=== PATIENT | male | born 1955 | race Caucasian/White ===

== ENCOUNTER → 2023-04-15 09:13 | Outpatient (REF) | payer OTHER, SELFPAY | LOC: DHCBC HW 09:13 | PROVIDERS: ATTENDING PHYSICIAN Internal Medicine; FAMILY PHYSICIAN Family Medicine | DX: I49.1 Atrial premature depolarization (principal); I77.810 Thoracic aortic ectasia; R06.09 Other forms of dyspnea | CPT/HCPCS: 93306 ==

== ENCOUNTER 2023-08-09 13:36 | Inpatient (IN) | payer OTHER, SELFPAY ==
[2023-08-09] VITALS (25 sets, daily range): BP systolic 131–170; BP diastolic 71–112; BMI 38.8; BMI 38.9
--- NOTE | 2023-08-09 08:16 | ED.GENMED ---
History of Present Illness
General
Chief Complaint: Chest Pain
Source: patient and ambulance crew
Exam Limitations: none
Time Seen by Provider: 08/09/23 08:08
History of Present Illness
History of Present Illness:
68-year-old male sudden onset of midsternal chest burning at about 645 this morning. Eventually relieved with nitroglycerin and aspirin via the medics. Per the medics patient look very pale cyanotic and diaphoretic. Similar episode that lasted 30
minutes walking to the [employer] the other night. No shearing pain or upper back pain. Currently asymptomatic
Past History
Past History
ED Past Medical History: HTN, Hypercholesterolemia and Other (Sleep apnea uses CPAP, )
ED Past Surgical History: Orthopedic (laminectomy X 2, Carpal tunnel Bilateral, Foot surgery, Right and left rotator cuff, ) and Other (MOHs surgery right hand, Hernia repair bilateral)
Social History
Tobacco: Non-smoker
Alcohol: Occasional
Personal:
Living: with family
Family History
Family History: Early CAD and CAD
Phy Exam
Physical Exam
Physical Exam:
GENERAL: Alert and oriented in no apparent distress
EYE: Orbits normal.
NECK: Supple, no significant adenopathy.
ENT: Pharynx without erythema
CARDIAC: Regular rate and rhythm without any obvious murmurs.
LUNGS: Clear breath sounds,normal
ABDOMEN: Soft, without focal tenderness or distention. Elevated BMI
NEUROLOGICAL: Alert and oriented , grossly non-focal
SKIN: Warm and dry, no rash or lesion, no discoloration, skin intact.
MUSCULOSKELETAL: No edema,no deformity.Good color
PSYCH: Normal and appropriate interaction.
Scores
Heart Score for Chest Pain Patients
STEMI patient?: No
History: Highly Suspicious
ECG: Nonspecific Repolarization
Age: >/= 65 years
Risk Factors: 1 or 2 Risk Factors
Troponin: </= Normal Limit
Heart Score for Chest Pain Patients: 6
Heart Score Risk: 20.3% MACE over next 6 weeks
Course
Orders/Labs/Results
Orders:
Orders
08/09/23 Breakfast
NPO
Allow oral meds: Yes
Allow clear liquids: No
08/09/23 07:59
Electrocardiogram (*1) Urgent
Reason for Study: Chest Pain
08/09/23 08:00
EKG- Treatment ONCE
08/09/23 08:09
PTT Urgent
Comment: Obtain baseline before beginning heparin infusion if not already collected
Heparin 4,000 units IV NOW STA
Nursing to Place Non Medication Order As Directed
Physician Order: PTT 6 hours after initial start of Heparin infusion
08/09/23 08:11
Cardiovascular Evaluation Urgent
Comment: ADD ON
Complete Blood Count/With Diff Urgent
Comprehensive Metabolic Panel Urgent
Troponin I Urgent
08/09/23 08:15
Heparin 75622 Units/250 ml 25,000 units in 250 ml IV PER PROTOCOL
Weight to be used for heparin protocol in kilograms (kg):: 144.6
Protocol:: Cardiac Tx/Acute Coronary
PTT Goal Range to be used:: PTT 73 to 111 seconds
Order type:: Initial
INITIAL Infusion Dose (UNITS/KG/hr) & then follow protocol:: 12 units/kg/hr
Infusion Dose in UNITS/hr & then follow protocol (UNITS/hr):: 1,000
INFUSION RATE in mL/hr & then follow protocol (mL/hr):: 10
PTT less than or equal to 64 seconds:: Increase rate by 200 units/hr (+ 2 mL/hr)
PTT 64.1 to 72.9 seconds:: Increase rate by 100 units/hr (+ 1 mL/hr)
PTT 73 to 111 seconds:: Target Range. No change in rate.
PTT 111.1 to 130.9 seconds:: Decrease rate by 100 units/hr (- 1 mL/hr)
PTT 131 to 199.9 seconds:: HOLD for 1 hr. Then decrease rate by 200 units/hr (- 2 mL/hr)
PTT greater than or equal to 200 seconds:: HOLD for 2 hrs & Notify Provider. Then decrease by 200 units/hr (-
2 mL/hr)
Lab follow-up:: Each change, PTT q6h until 2 consecutive are therapeutic. Then PTT
daily.
08/09/23 08:25
Nitroglycerin 100 mg/250 ml [Nitroglycerin Premix] 100 mg in 250 ml IV NOW
Initial dose in mcg/min, then titrate:: 5
Titrate to keep:: SBP < 160 mmHg
Titrate by mcg/min:: 5 mcg/min, may increase by 10 mcg/min if dose > 20 mcg/min
Frequency of titrations (minutes):: every 3-5 minutes
Maximum dose in mcg/min:: 200
Begin to taper infusion when:: Remained at goal for 2hrs
Taper by mcg/min:: 5 mcg/min
Frequency of taper (minutes) if patient maintains goal:: 30
Taper to off?: Yes
If infusion off & no longer maintaining goal:: Contact Provider
08/09/23 08:34
Nitroglycerin Sublingual [Nitrostat (Sublingual)] 0.4 mg .ROUTE .STK-MED ONE
08/09/23 08:37
Nitroglycerin Sublingual [Nitrostat (Sublingual)] 0.4 mg SL NOW STA
08/09/23 08:40
Code Status As Directed
Resuscitation Status: Full Code
VTE Contraindication Routine
VTE Mechanical Device Contraindication: Medical Contraindication
Pharmocologic Contraindication: Medical Contraindication
Comment: Heparin gtt
Glycohemoglobin (HgbA1c) Routine
Acetaminophen [Tylenol] 650 mg PO Q4HPRN PRN
Activity As Directed
Activity Level: Bathroom Privileges
INT (Intravenous Needle Therapy) As Directed
Comment: maintain peripheral IV access
Intake/ Output As Directed
Frequency: Per unit guidelines
Vital Signs As Directed
Frequency: q4h
Weight As Directed
Frequency: Once
Type of Scale: Standing Scale
08/09/23 08:42
Echo 2D MMode Color/Doppler Routine
Reason for Study: chest pain
08/09/23 08:43
ECG as needed As Directed
ECG as needed for:: Chest Pain
08/09/23 08:45
Add On- LAB Routine
Tests Added?: Lipid panel
08/09/23 09:14
Admit Patient As Directed
Co-Sign Provider:
Level of Care: Inpatient admission
Assign to:: IVU
Physician / Group: CBC
Diagnosis: ACS
Reason for Hospitalization: Acute coronary syndrome, cardiac catheterization
Expected length of stay greater than two midnights?: Yes
ELOS- Estimated Length of Stay in days: 3
I certify the patient meets the requirements for IP care: Yes
Troponin I Q3H
Comment: at admit & Q3H for 3 total including ED draws, obtain ECG with each level
08/09/23 09:30
Atorvastatin [Lipitor] 80 mg PO QPM
08/09/23 11:45
Troponin I Q3H
Comment: at admit & Q3H for 3 total including ED draws, obtain ECG with each level
08/09/23 14:00
Troponin I Urgent
08/09/23 14:45
Electrocardiogram (*1) Q6H
Reason for Study: Chest Pain
Comment: at admission and Q3H for total of 3, to be done with each troponin
Troponin I Q3H
Comment: at admit & Q3H for 3 total including ED draws, obtain ECG with each level
08/09/23 20:00
Carvedilol [Coreg] 12.5 mg PO BID
08/09/23 20:45
Electrocardiogram (*1) Q6H
Reason for Study: Chest Pain
Comment: at admission and Q3H for total of 3, to be done with each troponin
08/09/23 22:00
Zolpidem Tartrate [Ambien] 10 mg PO HS
08/10/23 08:00
Aspirin Low Dose EC [Aspir Low (Enteric Coated)] 81 mg PO DAILY
Valsartan [Diovan] 320 mg PO DAILY
Abnormal Lab Results
08/09/23 08/09/23
08:11 09:14
RBC 4.64 L 10^6/uL
(4.70-6.10)
MCH 32.3 H pg
(27.0-31.0)
Lymphocytes % 15.1 L %
(20.5-51.1)
Glucose 187 H mg/dl
(70-99)
Troponin I 0.049 H* ng/ml 0.070 H* D ng/ml
Triglycerides 169 H mg/dl
(10-149)
Total Cholesterol 225 H mg/dl
(50-199)
VLDL Cholesterol, Calc 33 H mg/dl
(0-30)
08/09/23 08:11
08/09/23 08:11
Vital Signs
Initial and Last Documented VS:
Initial Vital Signs
Pulse Resp BP Pulse Ox
64 16 166/112 95
08/09/23 08:00 08/09/23 08:00 08/09/23 08:00 08/09/23 08:00
Last Documented Vital Signs
Pulse Resp BP Pulse Ox
53 17 160/92 95
08/09/23 10:15 08/09/23 10:15 08/09/23 10:00 08/09/23 10:15
*Pulse Oximetry
Patient hypoxic: no
*EKG
Interpreted by ED Provider?: Yes
Interpretation: normal
Comparison EKG: no changes
Heart Rate: 62
Rate: normal
Rhythm: sinus and PVC's
[place]: normal axis
Interval: normal interval
QRS Pattern: normal QRS
Ischemia: non-specific ST changes
*Neuropathologist Interpretation
Rate: bradycardiac
Interpretation: normal
Heart Rate: 59
Rhythm: sinus
*Critical Care Note
Total Time (30-74mins, 75-104mins- exclusive of procedures): 35
Update Note
Update Note:
Patient's exertional symptoms 3 days ago along with description of symptoms this morning and appearance via the medics is highly suspicious for coronary disease. In addition his prehospital EKG had some flipped T waves in 1 and aVL and some
questionable early elevation inferiorly although our EKGs do not show this. Given his history complex risk factors and EKGs patient was immediately referred to cardiology who happened to be in the ER seeing another patient. Heparin was started.
Aspirin was already given.
ED Attending Note
-
Portions of this chart may have been created with voice recognition software.� Occasional wrong word or��sound alike� substitutions may have occurred due to the inherent limitations of voice recognition software.
Discharge Plan
Departure
Patient Disposition: Admit
Date of Disposition: 08/09/23
Time of Disposition: 08:24
Presentation/result/management discussed w/ accepting MD/DO: Cardiology
Discharge Problem:
Unstable angina., Probable non-STEMI VT
Prescriptions:
No Action
carvedilol 12.5 mg Tablet
12.5 mg PO BID
NyQuil 7.5-60-30-1,000 mg/30 mL Liquid
15 ml PO HSPRN PRN (Reason: sleep)
Metamucil Packet
1 packet PO Q72H
acetaminophen [Tylenol Arthritis] 650 mg Tablet Extended Release
650 mg PO Q8HPRN PRN (Reason: mild pain)
valsartan 320 mg Tablet
320 mg PO DAILY
zolpidem 10 mg Tablet
10 mg PO HS
turmeric 400 mg Capsule
2,000 mg PO DAILY
Nervive Nerve Health Tabs tablet
1 tab PO DAILY
Interventions
Interventions:
*Risk Screen - Suicide Last Done: 08/09/23 08:09
*General Assessment Last Done: 08/09/23 08:09
*Neglect/Abuse Screening Last Done: 08/09/23 08:09
*ED COVID-19 Vaccine History Last Done: 08/09/23 08:08
Discharge Date and Time
Print Language: SYRIAC
[2023-08-09 08:38] LABS: % Basophils 0.5 % (0-2); % Eosinophils 3.3 % (0-6); % Immature Granulocytes 0.1 % (0-0.5); % Lymphocytes 15.1 % (20.5-51.1); % Monocytes 6.4 % (1.7-9.3); % Neutrophils 74.6 % (42.2-75.2); Absolute Eosinophils 0.3 10^3/uL (0-0.7); Absolute Lymphocytes 1.2 10^3/uL (1.2-3.4); Absolute Monocytes 0.5 10^3/uL (0.1-0.6); Absolute Neutrophils 5.7 10^3/uL (1.4-6.5); Hematocrit 42.4 % (39.0-52.0); Mean Corp Hgb Conc. 35.4 g/dL (33.0-37.0); Mean Corpuscular Hgb 32.3 pg (27.0-31.0); Mean Corpuscular Volume 91.4 fL (80.0-94.0); Mean Platelet Volume 10.3 fL (7.4-10.4); Nucleated Red Blood Cells % 0 % (-); Platelet Count 155 10^3/uL (130-400); Red Blood Cell Count 4.64 10^6/uL (4.70-6.10); Red Cell Dist. Width 13.9 % (11.5-14.5); White Blood Cell Count 7.6 10^3/uL (4.8-10.8)
[2023-08-09] MEDS: NITROSTAT (SUBLINGUAL) 0.400000000000000022 MG SL (08:38)
[2023-08-09 08:48] LABS: ALT (SGPT) 28 U/L (0-50); AST (SGOT) 32 U/L (17-59); Albumin 4.2 g/dl (3.5-5.0); Alkaline Phosphatase 69 U/L (38-126); Blood Urea Nitrogen 16 mg/dl (9-20); Calcium 9.1 mg/dl (8.4-10.2); Carbon Dioxide 27 mmol/L (22-30); Chloride 103 mmol/L (98-107); Estimated Creatinine Clearance 122 ml/min; Glucose 187 mg/dl (70-99); Sodium 137 mmol/L (135-145); Total Bilirubin 1.1 mg/dl (0.2-1.3); Total Protein 7.1 g/dl (6.3-8.2); eGFR > 60.00
--- NOTE | 2023-08-09 08:48 | HPS.HSE ---
Family Physician
-
Family Physician: Ilya Gtz
Chief Complaint
-
Chest pain
History of Present Illness
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 He reports being
in his usual health until this weekend. He attended the [employer]. While walking approximately three quarters of a mile to the stadium he had extreme shortness of breath and chest tightness. He had to stop at least 3 times to catch his breath
and wait for the symptoms to resolve before proceeding. This morning he woke up and made himself a cup of tea and had sudden onset of chest tightness while sitting outside. His reports he looked very unwell. He reported associated
diaphoresis, overwhelming fatigue, and radiation of the pain into his shoulder blades. Initially he did not want to call EMS but finally agreed. He was given 324 mg of aspirin. He was then given sublingual nitroglycerin and he achieved relief
from his symptoms. EKG en route showed T wave inversions in V1 and aVL which have since improved.
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 He also has been feeling like he needs a nap after mowing
the lawn which is very unusual for him. He also reports 'working through' his shortness of breath while doing physical activity.
Approximately 2 weeks ago he had a tooth extraction. It was infected and he completed 7 days of antibiotic therapy prior to the inched extraction and 7 days of antibiotic therapy post extraction. He denies fevers and chills.
Medical History
Past Medical History
Past Medical History: Reports HTN and Hypercholesterolemia
Past Surgical History: Reports Orthopedic
Social History
Tobacco: Non-smoker
Alcohol: Daily (2 beers per day)
Personal:
Living: With Family
Family History
Family History: Not pertinent (Denies CAD.)
Allergies / Home Medications
Allergies reflects when Allergies were last updated in Frequency.
Home Medications with original date entered in Frequency
Allergy/Medication List:
Allergies:
He denies food and drug allergies.
Home medication list:
Tylenol arthritis extended 50 mg p.o. every 8 hours as needed mild pain
Carvedilol 12.5 mg p.o. twice daily
NyQuil 15 mL p.o. at bedtime as needed insomnia
Nervive health 1 tablet p.o. daily
Metamucil 1 packet p.o. every 72 hours
Turmeric 2000 g p.o. daily
Valsartan 320 mg p.o. daily
Zolpidem 10 mg p.o. at bedtime
Review of Systems
-
History Source: Patient
A 12 point ROS was completed and negative except as noted: Yes
Constitutional: Reports Fatigue
EENT: Reports No Symptoms
Respiratory: Reports See HPI
Cardiac: Reports See HPI
Abdomen/GI: Reports No Symptoms
: Reports No Symptoms
Musculoskeletal: Reports No Symptoms
Skin: Reports No Symptoms
Endocrine: Reports No Symptoms
Hematologic/Lymphatic: Reports No Symptoms
Psych: Reports No Symptoms
Physical Exam
Vital Signs
Vital Signs
Pulse Resp BP Pulse Ox
60 20 166/112 97
08/09/23 08:02 08/09/23 08:02 08/09/23 08:02 08/09/23 08:02
Physical Exam
General: Well Developed, Well Nourished, No Apparent Distress, Comfortable and Conversant
HEENT: NormoCephalic, Anicteric and Moist mucous membranes
Respiratory: Clear and Non Labored Respirations
Cardiac: S1/S2 and Regular Rhythm
Breast: Deferred by me
GI: Soft, Non Tender, Non Distended and Normal Bowel Sounds
Rectal: Deferred by Provider
Genito-urinary: Deferred by me
Musculoskeletal: No Clubbing and No Cyanosis
Skin: Warm
Neuro: AO x 3
Hematologic/Lymphatic: No Lymphadenopathy
Psych: Calm
Laboratory Results
-
08/09/23 08:11
Laboratory Results
Total Bilirubin 1.1 mg/dl (0.2-1.3) 08/09/23 08:11
AST 32 U/L (17-59) 08/09/23 08:11
ALT 28 U/L (0-50) 08/09/23 08:11
Alkaline Phosphatase 69 U/L (38-126) 08/09/23 08:11
Data Reviewed
-
Diagnostic Radiology: Report Reviewed by me (Sinus rhythm with sinus arrhythmia, PVC, nonspecific ST abnormality, rate 62)
Medical Tests (Nuc Med, Echo, EKG etc): Report Reviewed by me (Echocardiogram 03/2023: LVEF 60 to 65%. Aortic close without stenosis. Aortic root 4.0 cm)
Lab Data: Labs Reviewed by me
Old Records: Reviewed
Impression/Plan
-
IMPRESSION: 68M with PACs, PSVT, IVCD, hypertension, hyperlipidemia, hypertriglyceridemia, mildly dilated arctic root, prediabetes, obesity, and chronic left lower extremity edema presented with a chief complaint of chest pain with OG
[employer] Preparation Worker: Dr. Escobar
PLAN:
ACS
-He received ASA 324 mg by EMS, continue 81 mg daily
-Intravenous heparin with bolus
-Chest pain-free on nitroglycerin drip
-Continue beta-wendy (carvedilol 12.5 mg BID), he already took today's dose
-Echocardiogram
-Cardiac catheterization today
Hyperlipidemia, hypertriglyceridemia
-Most recent LDL in 2021 was 122, he declined statin therapy
-Lipid panel pending, will start statin to achieve goal LDL
PSVT, PACs, continue beta-wendy
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
Prediabetes, most recent HgbA1c 6.1%
Obesity, BMI 38, he would benefit from weight loss
[2023-08-09] MEDS: NITROGLYCERIN PREMIX 250 IV (08:53)
[2023-08-09 09:00] LABS: Troponin I 0.049 ng/ml
[2023-08-09 09:00] LABS: APTT 27.9 Sec (23.4-35.0)
[2023-08-09 09:02] LABS: HDL Cholesterol 53 mg/dl; LDL Cholesterol, Calculated 139 mg/dl; Total Cholesterol 225 mg/dl (50-199); Triglyceride 169 mg/dl (10-149); Very Low Density Lipoprotein 33 mg/dl (0-30)
[2023-08-09] MEDS: HEPARIN 4000 UNITS IV (09:04)
[2023-08-09] MEDS: HEPARIN 25000 UNITS/250 ML IV ×2 (09:05→19:12)
--- NOTE | 2023-08-09 09:16 | CON.CAR ---
Consultation
Consultation Request
Date/Time Consultation Requested: 829 on 08/09/2023
Date/Time Consultation Performed: 82908/09/23
Requesting Provider: Dr. Rosado
Performing Provider: Dr. Simmons
Reason for Consultation: Chest pain
Medical History
-
Chief Complaint: Chest pain
History of Present Illness:
Primary roll reclaimer Dr. Escobar
68-year-old male with a history of hypertension, hypercholesterolemia and obesity who presents with chest pressure across his chest. Patient states he was in his usual health until this weekend. He had a he went to the [employer] and walked
three quarters of a mile to the stadium and had to stop due to onset of chest tightness and shortness of breath resolved with rest after about 5 minutes no recurrent episode until this morning he was eating breakfast and had tightness across his
chest apparently he did not look well. Patient's says his color did not look good he was taken to the ER by ambulance en route had aspirin and nitroglycerin with relief of symptoms. ECG en route had T wave inversions in 1 and aVL which have
improved on his current ECG which shows sinus rhythm without acute ischemic changes. Patient had some low-grade chest sensation when I was evaluating him in the ER which promptly resolved with sublingual nitroglycerin.
No prior history of coronary artery disease. Review of systems notable for tooth extraction about 2 weeks ago it was an infected tooth and he had 7 days of antibiotics prior to the extraction and another 7 days postextraction no current fevers or
other illness no other respiratory complaints no GI complaints no history of bleeding problems or blood clotting problems no history of stroke or TIA no allergies to IV contrast or other medications
Past medical history
Hypertension
Hypercholesterolemia
Obesity
Recent dental extraction as noted above
Prior prostate surgery
Social history does not smoke
Family history father had coronary disease
Allergies / Home Medications
Allergy/AdvReac Type Severity Reaction Status Date / Time
No Known Allergies Allergy Verified 08/09/23 08:00
�Medication �Instructions �Recorded �Confirmed �Type
Nervive Nerve Health Tabs 1 tab PO DAILY 08/09/23 08/09/23 History
acetaminophen 650 mg 650 mg PO Q8HPRN PRN mild pain 08/09/23 08/09/23 History
tablet,extended release
carvedilol 12.5 mg tablet 12.5 mg PO BID 08/09/23 08/09/23 History
[id number]-acetaminophen 7.5 15 ml PO HSPRN PRN sleep 08/09/23 08/09/23 History
mg-60 vs-[id number]/30mL oral liqd
psyllium 1 packet PO Q72H 08/09/23 08/09/23 History
turmeric 400 mg capsule 2,000 mg PO DAILY 08/09/23 08/09/23 History
valsartan 320 mg tablet 320 mg PO DAILY 08/09/23 08/09/23 History
zolpidem 10 mg tablet 10 mg PO HS 08/09/23 08/09/23 History
Review of Systems
-
All other systems: Negative unless noted
Physical Exam
Vital Signs
Pulse Resp BP Pulse Ox
60 20 166/112 97
08/09/23 08:02 08/09/23 08:02 08/09/23 08:02 08/09/23 08:02
Lab Results
08/09/23 08:11
08/09/23 08:11
Troponin I 0.049 ng/ml H* 08/09/23 08:11
Physical Exam
General: Well Developed and Well Nourished
HEENT: Normocephalic, Anicteric and Other (Neck without JVD no carotid bruit no lymphadenopathy external ear and oral exam and unremarkable eyes extraocular is intact pupils are equal)
Respiratory: Other (No wheezes rales or rhonchi)
Cardiac: Regular Rhythm (No murmur rub or gallop)
GI: Soft, Non Tender, Non Distended and Other
Musculoskeletal: No Clubbing, No Cyanosis and No Edema
Skin: Warm, Dry and Rash
Neuro: Awake and Alert
Hematologic/Lymphatic: No Lymphadenopathy
Psych: Calm
Impression / Plan
-
Chest discomfort/ACS
-Description of chest discomfort which was nitrate responsive with some associated ECG changes is consistent with angina. Patient currently chest pain-free
-Continue with IV heparin and IV nitro
-Aspirin
-Statin
-Beta-wendy. Note patient already took his carvedilol today
-Plan for cardiac catheterization today. Reviewed procedure and risks with the patient. Patient in agreement. Also reviewed with interventional cardiology.
.
Hypertension. Stable continue current therapy
.
Hypercholesterolemia atorvastatin started
Data Reviewed
-
EKG: Report Reviewed by me
Radiology: Report Reviewed by me
Medical Tests (Nuc Med, Echo etc): Report Reviewed by me
Labs: Discussed with Physician (Both ER physician and with Dr. Tang)
[2023-08-09 12:30] LABS: Troponin I 0.254 ng/ml
[2023-08-09 13:33] LABS: Glycohemoglobin (HgbA1c) 6.4 % (4.0-5.6)
--- NOTE | 2023-08-09 15:04 | ITS.CL.CATH ---
Recreation Leader - Catheterization
Cardiac Catheterization
Procedure Report:
CARDIAC CATHETERIZATION REPORT
Date of Procedure: 08/09/2023
Referring: Kana Simmons M.D.
INDICATION: Non-ST elevation myocardial infarction.
PROCEDURE:
1. Left heart catheterization.
2. Coronary angiography.
ACCESS:
6 [place] right radial artery.
CATHETERS:
1. 5 [place] JR4.
2. 5 [place] JL 4.
HEMODYNAMIC DATA
Weight (kg): 144.2
AO (s/d/x, mmHg): 151/91/114
LV (s/x mmHg): 153/21 (A wave to 31)
LEFT VENTRICULOGRAPHY: Not performed.
CORONARY ANGIOGRAPHY
Dominance: Right.
Left Main: Normal size, bifurcating vessel. There is no coronary artery disease.
LAD: Normal size vessel giving rise to 2 diagonals. There is a long, 70% lesion in the proximal/mid vessel spanning the origin of the first diagonal. There is an 80% in the mid vessel, immediately after the takeoff of the second diagonal. The
first diagonal is a small, 1 mm vessel. The second diagonal is a medium size to�2.5 mm vessel.
Ramus: Congenitally absent.
Circumflex: Normal size, nondominant vessel giving rise to 2 obtuse marginals. There is a 90% lesion in the origin of OM1. There is a 90% lesion in the mid circumflex, immediately proximal to the origin of OM 2.
RCA: Large size, dominant vessel. There is a critical, 90% stenosis in the mid RCA.
INTERVENTION(S)
None.
Closure Device: Vascular band.
Radiation (mGy): 369.29
DAP (cm2.Gy): 23.3781
Fluoroscopy time (minutes): 2.0
Sedation time (minutes): 29
CONCLUSIONS
1. Right dominant circulation with a critical, 90% stenosis in the mid RCA, a long, 70% lesion in the proximal/mid LAD spanning the origin of D1, and 80% lesion in the mid LAD immediately after the takeoff of D2, a 90% lesion in the origin of OM1
and a 90% lesion in the mid circumflex, immediately proximal to the origin of OM 2.
2. Moderately elevated filling pressures (LVEDP = 21 mmHg at 144.2 kg) with evidence of diastolic dysfunction (A wave to 31 mmHg).
RECOMMENDATIONS:
1. Expectant management after cardiac catheterization via right radial approach.
2. Limited weight bearing on the right wrist for one week.
3. Consultation with CT surgery regarding revascularization strategy.
4. Aggressive risk factor modification including hypertension control and reduction in cholesterol.
5. Echocardiogram ordered and pending.
Copy to: Kana Simmons M.D., Maurice Escobar M.D., Ph.D., Darrin Pathak.Mohini.
Kevin Tang DO, FACC, FACP
[2023-08-09 15:07] LABS: Troponin I 0.415 ng/ml
--- NOTE | 2023-08-09 15:36 | CONSULT.CT ---
Consultation
-
Date/Time Consultation Requested: 08/09/2023
Date/Time Consultation Performed: 08/09/2023
Requesting Provider: Kevin Tang
Performing Provider: Siva leos
Reason for Consultation: Evaluation for coronary artery bypass grafting
Patient History
Physicians
Family Physician: Ilya Gtz
Outpatient Cloth Finishing Range Back Tender: Dr. Escobar
Inpatient Cloth Finishing Range Back Tender: Dr. Simmons
History of Present Illness
Patient is a 68-year-old male followed by Dr. Escobar his primary senior planner. Past medical history significant for hypertension, hypercholesterolemia, prediabetes with A1c of 6.4 and obesity.
Presented to [facility] emergency department complaining of substernal chest pressure. He had complained of substernal chest pain brought on with walking a short distance. Chest pain also described as chest tightness and he reports having
trouble catching his breath. Symptoms resolved after rest and the symptoms have been gradually getting worse over the past few weeks. On the morning of admission he complained of substernal chest pain while sitting outside drinking tea. He also
complained of sudden onset chest tightness and his called 911. During this episode he also reported diaphoresis, overwhelming fatigue and substernal chest tightness which radiated into both shoulder blades.
In the emergency room he was given aspirin and sublingual nitroglycerin which relieved his symptoms. He ruled in for NSTEMI with serial enzymes studies. Echocardiogram performed on 08/09/2023 showed normal biventricular size and systolic function
without regional wall motion abnormality. There is no significant valvular disease. Left ventricular ejection fraction was noted to be 55 to 60%. He then underwent cardiac catheterization by Dr. Kevin Tang on 08/09/2023 which showed 80% stenosis
of the mid LAD. 90% stenosis of the origin of OM1 and 90% lesion in the mid circumflex immediately proximal to the origin of OM 2. There was a critical 90% stenosis in the mid RCA.
Cardiothoracic surgery was consulted for CABG evaluation.
Preoperative studies will be ordered and all studies will be reviewed by attending cardiothoracic surgeon's and will discuss surgical plan and timing with patient later this week
Past Medical History
Past Medical History: Arrhythmias (History of bradycardia patient reports normal resting heart rate of 40-50), BPH, CAD, Covid-19, OG, GERD, HTN, Hypercholesterolemia, CHERYL and SOB
Past medical history significant for hypertension, hypercholesterolemia, obesity, obstructive sleep apnea uses CPAP at home, prediabetic, neuropathy left leg
Past Surgical History
Past Surgical History: Orthopedic and Urological
Past surgical history significant for skin cancer
Bilateral hernia repair
Bilateral rotator cuff repair
Lumbar laminectomy x 2
Bilateral carpal tunnel release
Prostatectomy in February 2022
Dental History
No dental issues currently, history of tooth extraction approximately 2 weeks ago followed by short course of antibiotics,
Family History
Mother: at Age (Mother at age 83 history of heart disease and congestive heart failure)
Father: at Age (Father at 61 years of age from a myocardial infarction)
Family Medical History: Early CAD, CAD, Hypertension and Other (Brother of [place] at age 73, sister 69 years of age alive and well status post valve surgery)
Social History
Alcohol: Daily (Drinks 2 beers a day)
Drug: None
Tobacco: Non-Smoker
Personal:
Living: With Spouse (Lives with spouse Lisa)
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
Covid Vaccination History:
Patient reports COVID infection x 1
COVID-vaccine x 4
Allergies
Allergy/AdvReac Type Severity Reaction Status Date / Time
No Known Allergies Allergy Verified 08/09/23 08:00
Home Medications
�Medication �Instructions �Recorded �Confirmed �Type
Nervive Nerve Health Tabs 1 tab PO DAILY 08/09/23 08/09/23 History
acetaminophen 650 mg 650 mg PO Q8HPRN PRN mild pain 08/09/23 08/09/23 History
tablet,extended release
carvedilol 12.5 mg tablet 12.5 mg PO BID 08/09/23 08/09/23 History
dnzyzjjwl-DNZ-UY-acetaminophen 7.5 15 ml PO HSPRN PRN sleep 08/09/23 08/09/23 History
mg-60 [id number]/30mL oral liqd
psyllium 1 packet PO Q72H 08/09/23 08/09/23 History
turmeric 400 mg capsule 2,000 mg PO DAILY 08/09/23 08/09/23 History
valsartan 320 mg tablet 320 mg PO DAILY 08/09/23 08/09/23 History
zolpidem 10 mg tablet 10 mg PO HS 08/09/23 08/09/23 History
Review of Systems
-
History Source: Patient
General: Reports Fatigue
HEENT: Reports No Symptoms
Respiratory: Reports SOB and OG
Cardiac: Reports Chest Pain, CAD, Diaphoresis and Edema
Abdomen/GI: Reports Reflux
: Reports Nocturia
Musculoskeletal: Reports Arthralgias, Joint Pain, Edema and Other (Osteoarthritis bilateral knees)
Skin: Reports Other (History of skin cancer status post Mohs procedure)
Neurological: Reports Other (Left leg neuropathy)
Vascular: Reports Other (Patient reports legs feeling heavy with walking)
Physical Exam
Vital Signs
Pulse 50 08/09/23 13:45
Resp Rate 16 08/09/23 13:45
Blood pressure 135/80 08/09/23 13:30
Blood pressure extremity used: Left upper arm 08/09/23 08:02
Position: Sitting 08/09/23 08:02
MAP (cuff-Clayton Monitor) 96 08/09/23 13:30
SaO2 95 08/09/23 13:45
Nasal Cannula flow liters per minute 97 08/09/23 08:16
Oxygen Mode of Delivery Room air 08/09/23 08:16
Actual Weight 318 lb 12.615 oz 08/09/23 08:07
Body Mass Index (BMI) 38.8 08/09/23 08:07
Labs
08/09/23 08:11
08/09/23 08:11
APTT 27.9 Sec (23.4-35.0) 08/09/23 08:09
Hemoglobin A1c 6.4 % (4.0-5.6) H 08/09/23 11:53
Troponin I 0.415 ng/ml H* D 08/09/23 14:28
Exam
General: Well Developed, Well Nourished, No Apparent Distress and Comfortable
HEENT: Normocephalic, Anicteric and Atraumatic
Neck: Trachea Midline
Respiratory: Clear
Cardiac: Regular Rhythm
GI: Soft, Non Tender, Non Distended, Normal Bowel Sounds and Other (Obesity)
Rectal: Deferred by Provider
Skin: Warm and Dry
Neuro: Awake, Alert, Oriented and AO x 3
Extremities: Lower Level Edema (Trace lower extremity edema left greater than right) and Pulses (Distal pulses intact bilaterally, dorsalis pedis pulse 1-2+ bilaterally, feet cool)
Lymph: No Lymphadenopathy
Psych: Calm
Assessment / Plan
-
Assessment:
NSTEMI
Three-vessel coronary artery disease with preserved left ventricular function, ejection fraction 55 to 60%
Hypertension
Hypercholesterolemia
Prediabetic with A1c of 6.4
Bradycardia with resting heart rate 40-50, asymptomatic
Obesity
Obstructive sleep apnea he uses CPAP at home
Neuropathy left leg/chronic left lower extremity edema
Skin cancer status post Mohs procedure
Osteoarthritis/degenerative joint disease
Strong family history of coronary artery disease
Plan:
Preoperative studies ordered
All studies to be reviewed by attending cardiothoracic surgeon's and will discuss plan and surgical timing with patient later this week.
[2023-08-09] MEDS: TYLENOL 650 MG PO (16:34)
[2023-08-09] MEDS: NSS 1000 IV (16:41)
--- NOTE | 2023-08-09 17:41 | PTCARENOTE ---
PT assisted OOB to BR, janice well.
[2023-08-09] MEDS: LIPITOR 80 MG PO (17:58)
[2023-08-09] MEDS: COREG 12.5 MG PO (20:33)
[2023-08-09] MEDS: AMBIEN 10 MG PO (22:40)
[2023-08-10] VITALS (9 sets, daily range): BP systolic 136–194; BP diastolic 78–110; BMI 38.2
--- NOTE | 2023-08-10 00:19 | PTCARENOTE ---
Pt received start of shift, HR SB/SR w/ sinus arrhythmia 50s-70s. R radial cath site dressing CDI, pulse palpable, soft, no hematoma. Heparin resumed at 1900 @ 1000units/hr. Educated pt on plan of care, pt states no questions at this time. Pt denies
any CP, SOB, or lightheadedness/dizziness. Informed to notify RN if any changes, call viramontes within reach.
[2023-08-10 02:11] LABS: Hematocrit 39.1 % (39.0-52.0); Hemoglobin 13.7 g/dL (13.0-18.0); Mean Corpuscular Hgb 32.2 pg (27.0-31.0); Mean Corpuscular Volume 91.8 fL (80.0-94.0); Mean Platelet Volume 10.1 fL (7.4-10.4); Platelet Count 140 10^3/uL (130-400); Red Blood Cell Count 4.26 10^6/uL (4.70-6.10); Red Cell Dist. Width 13.7 % (11.5-14.5); White Blood Cell Count 6.4 10^3/uL (4.8-10.8)
[2023-08-10 02:21] LABS: APTT 36.4 Sec (23.4-35.0)
[2023-08-10 02:32] LABS: ALT (SGPT) 25 U/L (0-50); AST (SGOT) 29 U/L (17-59); Albumin 3.5 g/dl (3.5-5.0); Alkaline Phosphatase 54 U/L (38-126); Blood Urea Nitrogen 13 mg/dl (9-20); Calcium 8.6 mg/dl (8.4-10.2); Carbon Dioxide 28 mmol/L (22-30); Chloride 106 mmol/L (98-107); Direct Bilirubin 0.2 mg/dl (0.0-0.4); Estimated Creatinine Clearance > 125 ml/min; Glucose 122 mg/dl (70-99); Sodium 138 mmol/L (135-145); Total Bilirubin 1.3 mg/dl (0.2-1.3); Total Protein 6.3 g/dl (6.3-8.2); eGFR > 60.00
[2023-08-10 02:38] LABS: Troponin I 0.449 ng/ml
[2023-08-10] MEDS: DIOVAN 320 MG PO (09:56)
[2023-08-10] MEDS: ASPIR LOW (ENTERIC COATED) 81 MG PO (09:56)
[2023-08-10] MEDS: COREG 12.5 MG PO ×2 (09:56→21:01)
--- NOTE | 2023-08-10 10:35 | W.PN.UPDATE ---
Update Note
Progress Note Update
Procedure Type:�Isolated CABG
PERIOPERATIVE OUTCOME ESTIMATE %
Operative Mortality 1.4%
Morbidity & Mortality 6.61%
Stroke 0.61%
Renal Failure 1.07%
Reoperation 1.99%
Prolonged Ventilation 3.68%
Deep Sternal Wound Infection 0.208%
Long Hospital Stay (>14 days) 3.17%
Short Hospital Stay (<6 days)* 50.1%
Clinical Summary
Planned Surgery: Isolated CABG, Urgent, First cardiovascular surgery
Demographics: 68 year old, male, 144kg, 193cm, BMI: 38.7 kg/m�
Lab Values: Creatinine: 0.8 mg/dL, Hematocrit: 39.1%, WBC Count: 6.4 10�/�L, Platelet Count: 106262 cells/�L
Substance Abuse: Never smoker, Alcohol use: >=8 drinks/week
Risk Factors / Comorbidities: Hypertension, Family Hx of CAD
Pulmonary RF: Sleep Apnea
Cardiac Status: Ejection Fraction = 55%
Coronary Artery Disease: 3 vessels diseased, Proximal LAD Stenosis >=70%, Non-ST Elevation MD, MD: 1 to 7 Days
Valve Disease: Mild MR, Trivial/Trace TR
[2023-08-10 11:04] LABS: INR 1.07; PT 13.8 Sec (11.4-14.6)
[2023-08-10 11:05] LABS: APTT 38.8 Sec (23.4-35.0)
--- NOTE | 2023-08-10 11:07 | CM ---
Chart reviewed. Patient is independent of ADLS, lives with his in a 2 STH, 0 KAT, 0 DME. Patient being worked up for a CABG. Plan is for the patient to return home. CM to follow
[2023-08-10 11:13] LABS: Troponin I 0.279 ng/ml
--- NOTE | 2023-08-10 12:53 | PTCARENOTE ---
type and screen drawn and sent to lab.
--- NOTE | 2023-08-10 12:53 | PTCARENOTE ---
received patient this am up in chair, monitor shows NSR, VSS, IV heparin now infusing at 1400units/hr without difficulties. son at bedside.
--- NOTE | 2023-08-10 12:56 | W.PN.CD ---
Today's Communication / Plan
-
continue ASA, and heparin drip
CT surgery consult
Impression / Plan
-
CAD/NSTEMI
-peak trop 0.4
-echo: EF 55-60%, no sig valve disease
-multivessel CAD on cath
-CABG evaluation
-cont ASA, heparin drip with monitoring of Hgb and tele
-cont coreg
Hypertension
-Stable: continue current therapy: coreg and valsartan.
Hypercholesterolemia:
- atorvastatin 80mg started this admission.
Physical Exam
Vital Signs/Labs
Vital Signs
Temp Pulse Resp BP Pulse Ox
99.2 F 57 18 144/70 98
08/10/23 12:52 08/10/23 12:00 08/10/23 12:52 08/10/23 09:56 08/10/23 12:52
08/09/23 08/10/23 08/11/23
06:59 06:59 06:59
Actual Weight 142.3 kg
08/10/23 01:50
08/10/23 01:50
PT 13.8 Sec (11.4-14.6) 08/10/23 10:38
INR 1.07 08/10/23 10:38
APTT 38.8 Sec (23.4-35.0) H 08/10/23 10:38
Triglycerides 169 mg/dl (10-149) H 08/09/23 08:11
LDL Cholesterol, Calc 139 mg/dl 08/09/23 08:11
VLDL Cholesterol, Calc 33 mg/dl (0-30) H 08/09/23 08:11
HDL Cholesterol 53 mg/dl 08/09/23 08:11
LAB Results
08/09/23 08/09/23 08/09/23
08:11 09:14 11:53
Troponin I 0.049 H* 0.070 H* D 0.254 H* D
08/09/23 08/09/23 08/10/23
14:28 14:28 01:50
Troponin I 0.415 H* D Cancelled 0.449 H*
08/10/23
10:38
Troponin I 0.279 H*
Physical Exam
Constitutional: Comfortable
EENT: Moist mucous membranes
Cardiovascular: Rhythm & rate is regular, Pedal edema is absent, JVD pressure is normal and Systolic murmur absent
Respiratory: Respiratory effort normal and Lungs clear to auscul.
GI: Soft, Distention absent and Flat
Neuro/Psych: AO x 3
Data Reviewed
-
Date of Service: August 10, 2023
EKG: Other (Tele: SB 50s)
Echo: Report Reviewed by me
Labs: Labs Reviewed by me
Old Records: Reviewed
--- NOTE | 2023-08-10 14:48 | CM ---
Reviewed preoperative and postoperative instructions and restrictions, along with showering guidelines. Gave patient Cardiac Surgery Book. Patient is agreeable to a home visit by CT Transitional RN. Plan is for the patient to return home with CT
Transitional Care RN
[2023-08-10] MEDS: HEPARIN 25000 UNITS/250 ML IV (15:14)
--- NOTE | 2023-08-10 16:32 | PTCARENOTE ---
patient will be transferred to CVICU, 2262. report given to Ana RIVERA. IV heparin remains at 1400units/hr. personal belongings packed and sent with patient. to 2263 via wc accompanied by RN and is at bedside.
--- NOTE | 2023-08-10 17:08 | PTCARENOTE ---
Patient received as transfer from IVU. Denies pain, SB via cm, SaO2 @ 97% on RA. Heparin gtt infusing as ordered at 1400units/hour. R wrist procedural site cdi, no ecchymosis or hematoma noted. Patient updated to plan of care, in agreement. See work
list for full assessment and interventions performed.
[2023-08-10 18:01] LABS: APTT 47.3 Sec (23.4-35.0)
[2023-08-10] MEDS: LIPITOR 80 MG PO (18:15)
--- NOTE | 2023-08-10 20:00 | PTCARENOTE ---
assumed care of pt from previous RN. pt A&Ox4, resting in chair at time of assessment. sinus madhu to SR on tele-monitor. POX 97-98% on RA. abd s/n, +BS. voiding in bathroom. R wrist cath site stable, CDI. PIV intact. heparin infusing per protocol.
plan of care discussed w/ pt, pt in agreement. see worklist for complete nursing assessment, interventions, VS, and I&Os.
--- NOTE | 2023-08-10 21:51 | PTCARENOTE ---
pt clipped for CVOR. 1st shower completed. NPO for 0000.
[2023-08-10] MEDS: AMBIEN 10 MG PO (22:11)
--- NOTE | 2023-08-11 00:15 | PTCARENOTE ---
assessment remains unchanged. VSS. pt on home CPAP machine. PTT collected and sent.
[2023-08-11 00:16] VITALS: BP 149/96
[2023-08-11 05:07] LABS: % Basophils 0.4 % (0-2); % Eosinophils 2.6 % (0-6); % Immature Granulocytes 0.4 % (0-0.5); % Lymphocytes 18.5 % (20.5-51.1); % Neutrophils 69.1 % (42.2-75.2); Absolute Eosinophils 0.2 10^3/uL (0-0.7); Absolute Lymphocytes 1.3 10^3/uL (1.2-3.4); Absolute Monocytes 0.6 10^3/uL (0.1-0.6); Absolute Neutrophils 4.8 10^3/uL (1.4-6.5); Hematocrit 40.3 % (39.0-52.0); Hemoglobin 14.1 g/dL (13.0-18.0); Mean Corpuscular Volume 91.4 fL (80.0-94.0); Nucleated Red Blood Cells % 0 % (-); Platelet Count 151 10^3/uL (130-400); Red Blood Cell Count 4.41 10^6/uL (4.70-6.10); Red Cell Dist. Width 13.5 % (11.5-14.5)
[2023-08-11 05:22] VITALS: BP 155/95
[2023-08-11 05:24] LABS: Blood Urea Nitrogen 15 mg/dl (9-20); Calcium 8.9 mg/dl (8.4-10.2); Carbon Dioxide 29 mmol/L (22-30); Chloride 102 mmol/L (98-107); Estimated Creatinine Clearance 121 ml/min; Glucose 122 mg/dl (70-99); Sodium 136 mmol/L (135-145); eGFR > 60.00
[2023-08-11 05:25] VITALS: BP 148/88; BMI 37.9
[2023-08-11] MEDS: MAGNESIUM OXIDE 500 MG PO (05:34)
[2023-08-11] MEDS: PROTONIX 40 MG PO (05:34)
--- NOTE | 2023-08-11 05:45 | DOWNTIME ---
There was a [employer] Technician Downtime on 08/11/2023 from 0100 to 08/11/2023 at 0337. Downtime documentation of patient's care, including medication administrations, has been reconciled in the electronic record per guidelines. Refer to the
patient's paper chart under the miscellaneous tab to see printed paper medication records and downtime forms.
--- NOTE | 2023-08-11 05:46 | PTCARENOTE ---
2nd shower completed. pre-op meds given. lopressor held per Davion MAN. HR 54. BP 155/95. pre-op education provided. all questions answered. internal control consultant to CVOR.
[2023-08-11] MEDS: BACTROBAN 2% OINTMENT 1 APPLIC NASAL (05:54)
--- NOTE | 2023-08-11 06:06 | W.PN.UPDATE ---
Update Note
Progress Note Update
patient for CABG today with Dr Milian.
-Reports some anxiety surrounding procedure, though otherwise NAEON.
-heparin gtt on overnight, to be held plant utility person to OR
-hemodynamically stable
-no complaints, denies active chest pain
-tolerating RA
Vital Signs / Labs
-
Vital Signs and Labs:
Temp Pulse Resp BP Pulse Ox
98.2 F 54 16 155/95 97
08/11/23 05:25 08/11/23 05:45 08/11/23 05:30 08/11/23 05:45 08/11/23 05:25
08/11/23 04:45
08/11/23 04:45
08/10/23 08/10/23 08/10/23
10:38 12:50 17:42
RBC
MCH
Lymphocytes %
APTT 38.8 H 47.3 H
Glucose
Troponin I 0.279 H*
Crossmatch IS Only See Detail
08/11/23 08/11/23
00:18 04:45
RBC 4.41 L
MCH 32.0 H
Lymphocytes % 18.5 L
APTT 60.0 H
Glucose 122 H
Troponin I
Crossmatch IS Only
--- NOTE | 2023-08-11 06:36 | W.CVOR.SURPR ---
CVOR Surgeon Immed Pre Op
-
I have examined this patient prior to performance of the scheduled procedure.
The patient's condition is unchanged from the time of the dictated/written History and
Physical and the patient is able to undergo the scheduled procedure.
--- NOTE | 2023-08-11 07:20 | W.PN.CD ---
Today's Communication / Plan
-
CABG today.
Impression / Plan
-
Impression/Plan: 68 y/o male with HTN and HLD admitted with NSTEMI, found to have MVCAD.
#CAD/NSTEMI
-Acute.
-Trop peaked at 0.4.
-Echo: LVEF 55-60%, no sig valve disease
-Multivessel CAD on cath.
-Cont ASA, heparin drip, carvedilol.
-CABG today.
-Anticipate routine postoperative care.
-Wean pressors/inotropes to MAP > 65 mmHg, CI > 2.2.
-Wean vent to extubate.
-Pain/chest tube management per CT surgery.
#Hypertension
-Chronic, stable.
-Adjust medications post CABG.
#Hypercholesterolemia
-Chronic, stable.
-Atorvastatin 80mg started this admission.
-Goal LDL < 55.
Subjective/Interval History:
No acute events.
DATA:
Cardiac Catheterization, 08/09/2023:
CONCLUSIONS
1. Right dominant circulation with a critical, 90% stenosis in the mid RCA, a long, 70% lesion in the proximal/mid LAD spanning the origin of D1, and 80% lesion in the mid LAD immediately after the takeoff of D2, a 90% lesion in the origin of OM1
and a 90% lesion in the mid circumflex, immediately proximal to the origin of OM 2.
2. Moderately elevated filling pressures (LVEDP = 21 mmHg at 144.2 kg) with evidence of diastolic dysfunction (A wave to 31 mmHg).
TTE, 08/09/2023:
CONCLUSIONS
Normal biventricular size and systolic function without regional wall motion
abnormality.
No significant valvular disease.
Compared to previous echo 04/15/23, the aortic root is 3.7cm on today's study
and was 4.0cm on the prior.
Physical Exam
Vital Signs/Labs
Vital Signs
Temp Pulse Resp BP Pulse Ox
36.8 C 54 16 155/95 97
08/11/23 05:25 08/11/23 05:45 08/11/23 05:30 08/11/23 05:45 08/11/23 05:25
08/09/23 08/10/23 08/11/23
11:59 11:59 11:59
Actual Weight 144.6 kg 142.3 kg 141.3 kg
08/11/23 04:45
08/11/23 04:45
PT 13.8 Sec (11.4-14.6) 08/10/23 10:38
INR 1.07 08/10/23 10:38
APTT 60.0 Sec (23.4-35.0) H 08/11/23 00:18
Triglycerides 169 mg/dl (10-149) H 08/09/23 08:11
LDL Cholesterol, Calc 139 mg/dl 08/09/23 08:11
VLDL Cholesterol, Calc 33 mg/dl (0-30) H 08/09/23 08:11
HDL Cholesterol 53 mg/dl 08/09/23 08:11
LAB Results
08/09/23 08/09/23 08/09/23
08:11 09:14 11:53
Troponin I 0.049 H* 0.070 H* D 0.254 H* D
08/09/23 08/09/23 08/10/23
14:28 14:28 01:50
Troponin I 0.415 H* D Cancelled 0.449 H*
08/10/23
10:38
Troponin I 0.279 H*
Physical Exam
Exam deferred. Patient currently in surgery.
Data Reviewed
-
Date of Service: August 11, 2023
Medical Decision Making: Reviewed Test Results, Test Interpretation and Review of Case with other Provider
EKG: Tracing Personally Visualized and interpreted and Report Reviewed by me
Echo: Tracing Personally Visualized and interpreted and Report Reviewed by me
X-Ray/CT/US/MRI/NUC/PET: Image Personally Visualized and interpreted and Report Reviewed by me
Medical Tests (PFT, Pathology etc): Image Personally Visualized and interpreted and Report Reviewed by me
Labs: Labs Reviewed by me
Old Records: Reviewed
[2023-08-11 08:12] LABS: Urine Albumin Negative (Neg - Trace); Urine Bilirubin Negative (Negative); Urine Character Clear (Clear); Urine Color Yellow; Urine Glucose Negative (Negative); Urine Ketone Negative (Negative); Urine Leukocyte Negative (Negative); Urine Nitrite Negative (Negative); Urine Occult Blood Negative (Negative); Urine Specific Gravity 1.005 (<1.030); Urine Urobilinogen Negative (Neg - 1+)
--- NOTE | 2023-08-11 08:15 | CM ---
Reviewed chart. Mr. Shipman is in the operating room today. Prior to admission he resides with his spouse in a two story home without any steps to enter. Prior to admission he was independent with ambulation and adls. He does not have any DME in
the home. Medical work-up in progress. The discharge plan is to return home with his spouse and a home visit by the Cardiothoracic Transitional Care Nurse when medically stable.
[2023-08-11 08:50] LABS: ACT+ - POC 82 Seconds (82-134)
[2023-08-11 08:51] LABS: B.E. - POC 0.2 mmol/L; Glucose - POC 144 mg/dl (65-99); HCO3 - POC 24 mmol/L (21-29); Hematocrit - POC 40 % PCV (42-52); Hemodilution- POC No; Hemoglobin Calculated - POC 13.6; Ionized Calcium - POC 1.19 mmol/L (1.12-1.27); O2 Saturation %Calculated-POC 97.8 5 (92-96); PCO2 - POC 37 mmHg (35-45); PO2 - POC 98 mmHg (80-100); POC Comment PRE; Potassium - POC 3.9 mmol/L (3.6-5.0); Sodium - POC 139 mmol/L (135-145); pH - POC 7.42 (7.35-7.45)
[2023-08-11 11:01] LABS: ACT+ - POC 484 Seconds (82-134)
[2023-08-11 11:31] LABS: B.E. - POC 3.4 mmol/L; Glucose - POC 152 mg/dl (65-99); HCO3 - POC 27 mmol/L (21-29); Hematocrit - POC 33 % PCV (42-52); Hemodilution- POC Yes; Hemoglobin Calculated - POC 11.3; Ionized Calcium - POC 1.02 mmol/L (1.12-1.27); PCO2 - POC 37 mmHg (35-45); PO2 - POC 402 mmHg (80-100); POC Comment CPB; Sodium - POC 137 mmol/L (135-145); pH - POC 7.47 (7.35-7.45)
[2023-08-11 11:37] LABS: ACT+ - POC 577 Seconds (82-134)
[2023-08-11 12:05] LABS: ACT+ - POC 555 Seconds (82-134)
[2023-08-11 12:08] LABS: Glucose - POC 158 mg/dl (65-99); HCO3 - POC 27 mmol/L (21-29); Hematocrit - POC 34 % PCV (42-52); Hemodilution- POC Yes; Hemoglobin Calculated - POC 11.5; Ionized Calcium - POC 1.07 mmol/L (1.12-1.27); O2 Saturation %Calculated-POC 99.9 5 (92-96); PCO2 - POC 39 mmHg (35-45); PO2 - POC 258 mmHg (80-100); POC Comment CPB; Potassium - POC 4.9 mmol/L (3.6-5.0); Sodium - POC 138 mmol/L (135-145); pH - POC 7.45 (7.35-7.45)
[2023-08-11 12:50] LABS: B.E. - POC 1.4 mmol/L; Glucose - POC 164 mg/dl (65-99); HCO3 - POC 25 mmol/L (21-29); Hematocrit - POC 34 % PCV (42-52); Hemodilution- POC Yes; Hemoglobin Calculated - POC 11.5; Ionized Calcium - POC 1.07 mmol/L (1.12-1.27); O2 Saturation %Calculated-POC 99.9 5 (92-96); PCO2 - POC 37 mmHg (35-45); PO2 - POC 337 mmHg (80-100); POC Comment REWARM; Potassium - POC 4.8 mmol/L (3.6-5.0); Sodium - POC 139 mmol/L (135-145); pH - POC 7.44 (7.35-7.45)
[2023-08-11 13:00] LABS: ACT+ - POC 788 Seconds (82-134)
[2023-08-11 13:21] LABS: ACT+ - POC 476 Seconds (82-134)
[2023-08-11 13:22] LABS: B.E. - POC 0.9 mmol/L; Glucose - POC 179 mg/dl (65-99); HCO3 - POC 26 mmol/L (21-29); Hematocrit - POC 37 % PCV (42-52); Hemodilution- POC Yes; Hemoglobin Calculated - POC 12.7; Ionized Calcium - POC 1.07 mmol/L (1.12-1.27); O2 Saturation %Calculated-POC 99.9 5 (92-96); PCO2 - POC 40 mmHg (35-45); PO2 - POC 322 mmHg (80-100); POC Comment WARM; Potassium - POC 4.5 mmol/L (3.6-5.0); Sodium - POC 138 mmol/L (135-145); pH - POC 7.41 (7.35-7.45)
[2023-08-11 13:53] LABS: ACT+ - POC 101 Seconds (82-134)
[2023-08-11 14:08] LABS: B.E. - POC -1.7 mmol/L; Glucose - POC 158 mg/dl (65-99); HCO3 - POC 23 mmol/L (21-29); Hematocrit - POC 36 % PCV (42-52); Hemodilution- POC Yes; Hemoglobin Calculated - POC 12.3; Ionized Calcium - POC 1.27 mmol/L (1.12-1.27); O2 Saturation %Calculated-POC 99.1 5 (92-96); PCO2 - POC 38 mmHg (35-45); PO2 - POC 136 mmHg (80-100); POC Comment POST; Potassium - POC 3.7 mmol/L (3.6-5.0); Sodium - POC 140 mmol/L (135-145); pH - POC 7.39 (7.35-7.45)
--- NOTE | 2023-08-11 14:25 | W.IMMPOSTOP ---
Addendum entered and electronically signed by Andrés Milian MD 08/11/23 15:25:
[id number]
Original Note:
Surgical Immed Post Op Note
-
CARDIAC SURGERY OPERATIVE NOTE:
Preoperative Dx:
MVCAD
Postoperative Dx:
Same
Procedures:
1) Median sternotomy
2) Takedown of BARRINGTON (narrow pedicle)
3) Endoscopic harvest/prep of L RA
4) Endoscopic harvest/prep of LLE GSV
5) CABG x 4 (BARR[place] to LAD, L RA to OM1, GSV to OM2, GSV to RPDA)
Surgeon:
Andrés Milian M.D.
Assistants:
Randolph Thurman P.A.-CVictoria; endoscopic harvest/prep of LLE GSV, executive administrative assistant throughout, closure
Conchita VasquezA.-Marylin; endoscopic harvest/prep of L RA, closure
Anesthesia:
Guzman Del Rosario M.D. and Ken Quintero, MarylinR.N.A.
Perfusion:
Marylin OrrCVictoriaPVictoria; XC: 100min, CPB: 144min
Findings:
BARRINGTON was very healthy appearing conduit w/ very brisk blood flow; ELD 2.5mm
L RA was very healthy appearing conduit w/ ELD 3.0mm
LLE GSV was very healthy appearing conduit w/ ELD 3.5mm
LAD was only visible at the apex; identified at it's midpoint directly under anterior cardiac vein; scattered calcifications; ELD 2.75mm w/ healthy quiroz at anastomosis
OM1 was intramyocardial under approximately 2mm of myocardium, scattered calcifications, thin, but healthy quiroz at anastomosis; ELD 2.75mm
OM2 was intramyocardial under approximate 1mm of myocardium, scant calcifications, thin, but healthy, quiroz at anastomosis; ELD 2.50mm
RCA at crux was profoundly calcified. RPDA w/ scattered calcifications, thin, but healthy quiroz at anastomosis, ELD 2.65mm
Very good flow in all grafts on intraoperative transit-time U/S flow probe assessment
LVEF 60-65% w/o RWMA, no significant valvular pathology
Implants:
CT x 4 (B/L pleural, inferior mediastinal, superior mediastinal)
Sternal wires x 7
Sternal 'X' plate w/ 8 - 16mm screws and Sternal 'Square' plate w/ 4 - 14mm screws
Transfusions:
None
Complications:
None
Condition:
73 sinus w/ isoelectric STs; 102/53, 28/16, CVP 10, 98%; CO/CI: 4.5/1.7 (starting CI was 1.3)
GTTS: insulin 1, precedex 0.5, cardine 2.5, dobutamine 3
Stable/guarded to CVICU
[2023-08-11] MEDS: ANCEF 10 IV ×2 (15:00)
--- NOTE | 2023-08-11 15:00 | PTCARENOTE ---
patient received direct from cvor status post CABG x 4 . Usual lines. #8 ett at 24cm at lip level: see flowrecord for SIMV vent settings. Precedex gtt in progress for sedation. CI 1.[address] surgical CASE LINER aware of same and of initial
hemodynamics. No wires. No blood products. Cardene gtt on at 2.5mg/hr for radial artery graft spasm prevention. NSR with 1st degree avb. Dobutrex off per anesthesia report: was utilized for sinus bradycardia. Chest tubes x 4: 2 meds/right and left
pleural to wall suction -20 pleur evacs. No air leak
[2023-08-11 15:04] LABS: Glucose - Point of Care 149 mg/dl (70-99)
--- NOTE | 2023-08-11 15:07 | CON.INTV ---
Documented by User: Breanna France, Resident, 08/11/23 16:53
Consultation
Consultation Request
Date/Time Consultation Requested: 08/11/2023
Date/Time Consultation Performed: 08/11/2023
Requesting Provider: Dr. Milian
Performing Provider:
Reason for Consultation: S/p CABG x 4
Medical History
-
Chief Complaint: S/p CABG x 4
History of Present Illness:
Mr. Kevin Shipman is a 68-year-old male patient who had presented to the ED on 08/08 with chief complaints of chest pressure and SOB. Cardiac catheterization showed 90% stenosis in the mid RCA, 80% stenosis of the mid LAD. 90% stenosis of the origin
of OM1 and 90% lesion in the mid circumflex immediately proximal to the origin of OM 2.
Past Medical History
Past Medical History: Other (See A&P for PMH and PSH)
Social History
Tobacco: Non-smoker
Alcohol: Daily (Drinks 2 beers a day)
Drug: None
Personal:
Living: With Family
Employment: Retired
Family History
Family History: CAD (Mother: CHF and heart disease, father: [place] at 61)
Allergies / Home Medications
Allergies
Allergy/AdvReac Type Severity Reaction Status Date / Time
No Known Allergies Allergy Verified 08/09/23 08:00
Home Medications
�Medication �Instructions �Recorded �Confirmed �Last Taken �Type
Nervive Nerve Health Tabs 1 tab PO DAILY Supplement 08/09/23 08/09/23 08/09/23 History
acetaminophen 650 mg 650 mg PO Q8HPRN PRN mild pain 08/09/23 08/09/23 08/07/23 History
tablet,extended release
carvedilol 12.5 mg tablet 12.5 mg PO BID Heart Failure 08/09/23 08/09/23 08/09/23 History
malkjcivt-GYE-YA-acetaminophen 7.5 15 ml PO HSPRN PRN sleep 08/09/23 08/09/23 08/08/23 History
mg-60 [id number]/30mL oral liqd
psyllium 1 packet PO Q72H Constipation 08/09/23 08/09/23 08/08/23 History
turmeric 400 mg capsule 2,000 mg PO DAILY Constipation 08/09/23 08/09/23 08/09/23 History
valsartan 320 mg tablet 320 mg PO DAILY Blood Pressure 08/09/23 08/09/23 08/09/23 History
zolpidem 10 mg tablet 10 mg PO HS Sleep 08/09/23 08/09/23 08/07/23 History
Review of Systems
-
Unable to Obtain full review of systems at this time due to: Other (Negative unless stated otherwise)
Vitals / Labs / Diagnostic Testing
Vital Signs
Temp Pulse Resp BP Pulse Ox
98.2 F 52 19 155/95 97
08/11/23 05:25 08/11/23 07:00 08/11/23 07:00 08/11/23 05:45 08/11/23 05:25
Laboratory Results
08/10/23 08/11/23 08/11/23
17:42 00:18 06:50
APTT 47.3 H 60.0 H Cancelled
Diagnostic Testing:
Physical Exam
-
HEENT: Normocephalic
Cardiovascular: S1/S2
Respiratory: Clear
GI: Soft, Non Distended and Non Tender
Neurology: Other (sedated)
General: Comfortable
Assessment
-
ASSESSMENT: Mr. Kevin Shipman is a 68-year-old male patient who had presented to the ED on 08/08 with chief complaints of chest pressure and SOB. Cardiac catheterization showed 90% stenosis in the mid RCA, 80% stenosis of the mid LAD. 90% stenosis
of the origin of OM1 and 90% lesion in the mid circumflex immediately proximal to the origin of OM 2.
IMPRESSION:
S/P CABG x 4 on 08/10
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
Hypertension
Hypercholesteremia
CHERYL�uses CPAP
Orthopedic (laminectomy X 2, Carpal tunnel Bilateral, Foot surgery, Right and left rotator cuff)
Hernia repair bilateral
PLAN:
Postop CXR: portable, ETT, sternal wiring, chest tubes
Chest x-ray today reviewed, no acute findings, interval extubation
O2 protocol
IS protocol
Pressors/antihypertensive/inotropes/diuretics will be provided as needed
Monitor chest tube output
Monitor hemoglobin
Monitor platelet count and coags
Transfuse blood product if needed
CT surgery following chest tubes
Monitor blood sugar
Insulin drip per protocol
Aspiration precautions
DVT prophylaxis
Early nutrition
Early mobilization

Documented by User: Juvenal Raymond MD 08/11/23 16:53
Medical History
-
History of Present Illness:
Mr. Kevin Shipman is a 68-year-old male patient who had presented to the ED on 08/08 with chief complaints of chest pressure and SOB. NSTEMI. Cardiac catheterization showed 90% stenosis in the mid RCA, 80% stenosis of the mid LAD. 90% stenosis of the
origin of OM1 and 90% lesion in the mid circumflex immediately proximal to the origin of OM 2. CTSx consulted, candidate for CABG
CABG done 08-10 with no issue
Seen at CVICU, on MV, sedated, well synchronized to MV
Review of Systems
-
Unable to Obtain full review of systems at this time due to: Patient Intubation
Physical Exam
-
HEENT: Moist Mucous Membranes
Cardiovascular: Regular Rhythm and Peripheral Edema (ANDIE edema)
Respiratory: Non-Labored Respirations
Neurology: Other (sedated)
Skin: Warm
Assessment
-
ASSESSMENT:
Mr. Kevin Shipman is a 68-year-old male patient who had presented to the ED on 08/08 with chief complaints of chest pressure and SOB. NSTEMI, seen by Cards. Cardiac catheterization showed 90% stenosis in the mid RCA, 80% stenosis of the mid LAD. 90%
stenosis of the origin of OM1 and 90% lesion in the mid circumflex immediately proximal to the origin of OM 2. Seen by CTSx, candidate for CABG.
IMPRESSION:
S/P CABG x 4 on 08/10
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
Hypertension
Hypercholesteremia
CHERYL,
Orthopedic (laminectomy X 2, Carpal tunnel Bilateral, Foot surgery, Right and left rotator cuff)
Hernia repair bilateral
PLAN:
Ventilator settings reviewed
SIMV: 14-600-5-0.6 (POx 97%)
FiO2 will be weaned
Minute ventilation will be adjusted
Arterial blood gases will be monitored
Spontaneous breathing trial will be attempted with hopeful extubation after anesthesia/sedation wear off
Postop CXR: portable, ETT, RIJV SGC, sternal wiring, chest tubes, no infiltrates
Pressors/antihypertensive/inotropes/diuretics will be provided as needed
Monitor chest tube output
Monitor hemoglobin
Monitor platelet count and coags
Transfuse blood product if needed
CT surgery following chest tubes
Monitor blood sugar
Insulin drip per protocol
Aspiration precautions
DVT prophylaxis
Early nutrition
Early mobilization
D/w patient's at bedside
D/w CTSx RN
Critical care time: 35 min
ATTENDING PHYSICIAN ATTESTATION:
(Initial Visit:)
I personally saw and evaluated the patient along with the Resident Dr France.
Discussed with Resident and discussed in rounds with MDT.
I agree with Resident�s findings and plan as documented in the resident�s note, which was edited by myself.
[2023-08-11 15:11] LABS: Hematocrit 36.3 % (39.0-52.0); Hemoglobin 12.9 g/dL (13.0-18.0); Platelet Count 125 10^3/uL (130-400)
[2023-08-11 15:12] LABS: B.E. -0.7 mmol/L; HCO3 24.2 mmol/L (21-28); Ionized Calcium 1.15 mMOL/L (1.15-1.33); O2 Saturation % 94.6 % (94-98); PCO2 40 mmHg (35-48); PO2 66 mmHg (83-108); Potassium 3.9 mMOL/L (3.5-5.1); Sodium 135 mMOL/L (136-145); pH 7.39 (7.35-7.45)
--- NOTE | 2023-08-11 15:12 | W.PN.CD ---
Addendum entered and electronically signed by Kevin Tang DO 08/11/23 17:57:
Attestation: I have seen and examined the patient. I can confirm Ms. Lopez findings and I agree with her assessment and plan as documented.
Intubated and sedated.
Anticipate routine postop care.
Agree with all findings as noted. Please also see my note from earlier today.
Original Note:
Today's Communication / Plan
-
Close post-op monitoring and care with weaning of drips and vent as tolerated per CT surgery/CVICU protocol
Impression / Plan
-
Impression/Plan: 68 y/o male with HTN and HLD admitted with NSTEMI, found to have MVCAD.
#CAD/NSTEMI:
-Trop peaked at 0.4.
-Echo: LVEF 55-60%, no sig valve disease. Intra-op MANDA: EF 55%
-Multivessel CAD on cath.
-now s/p CABG x 4 (BARR[place] to LAD, L RA to OM1, GSV to OM2, GSV to RPDA) 08/11/[address] Milian
-remains on levophed post-op
-goins and CTs in place
-post-op EKG SR with IVCD. Tele stable in SR
-ASA, statin, and BB
#Hypertension
-monitor closely post-op
#Hypercholesterolemia
-Atorvastatin 80mg started this admission.
-Goal LDL < 55.
Subjective/Interval History:
Intubated, sedated post-op. Appears comfortable.
DATA:
Cardiac Catheterization, 08/09/2023:
CONCLUSIONS
1. Right dominant circulation with a critical, 90% stenosis in the mid RCA, a long, 70% lesion in the proximal/mid LAD spanning the origin of D1, and 80% lesion in the mid LAD immediately after the takeoff of D2, a 90% lesion in the origin of OM1
and a 90% lesion in the mid circumflex, immediately proximal to the origin of OM 2.
2. Moderately elevated filling pressures (LVEDP = 21 mmHg at 144.2 kg) with evidence of diastolic dysfunction (A wave to 31 mmHg).
TTE, 08/09/2023:
CONCLUSIONS
Normal biventricular size and systolic function without regional wall motion
abnormality.
No significant valvular disease.
Compared to previous echo 04/15/23, the aortic root is 3.7cm on today's study
and was 4.0cm on the prior.
Physical Exam
Vital Signs/Labs
Vital Signs
Temp Pulse Resp BP Pulse Ox
98.2 F 52 19 155/95 97
08/11/23 05:25 08/11/23 07:00 08/11/23 07:00 08/11/23 05:45 08/11/23 05:25
08/10/23 08/11/23 08/12/23
06:59 06:59 06:59
Actual Weight 142.3 kg 141.3 kg
PT 13.8 Sec (11.4-14.6) 08/10/23 10:38
INR 1.07 08/10/23 10:38
APTT Cancelled 08/11/23 06:50
Triglycerides 169 mg/dl (10-149) H 08/09/23 08:11
LDL Cholesterol, Calc 139 mg/dl 08/09/23 08:11
VLDL Cholesterol, Calc 33 mg/dl (0-30) H 08/09/23 08:11
HDL Cholesterol 53 mg/dl 08/09/23 08:11
LAB Results
08/09/23 08/09/23 08/09/23
08:11 09:14 11:53
Troponin I 0.049 H* 0.070 H* D 0.254 H* D
08/09/23 08/09/23 08/10/23
14:28 14:28 01:50
Troponin I 0.415 H* D Cancelled 0.449 H*
08/10/23
10:38
Troponin I 0.279 H*
Physical Exam
Constitutional: No acute distress
Cardiovascular: Rhythm & rate is regular
Respiratory: Lungs clear to auscul. and Other (intubated and ventilated)
Neuro/Psych: AO x 3
Other: Skin (warm and dry)
Data Reviewed
-
Date of Service: August 11, 2023
EKG: Tracing Personally Visualized and interpreted (SR with IVCD)
[2023-08-11 15:27] LABS: Blood Urea Nitrogen 17 mg/dl (9-20); Estimated Creatinine Clearance 121 ml/min; Glucose 144 mg/dl (70-99); Magnesium 2.5 mg/dl (1.6-2.3)
[2023-08-11 15:30] LABS: INR 1.42; PT 17.4 Sec (11.4-14.6)
[2023-08-11 15:31] LABS: APTT 29.2 Sec (23.4-35.0)
[2023-08-11] MEDS: VERSED 0.5 MG IV (15:47)
[2023-08-11] MEDS: ALBUMIN 5% 250 IV ×3 (15:48→18:39)
[2023-08-11] MEDS: KCL 50 IV ×2 (16:00→17:06)
[2023-08-11 16:18] LABS: Glucose - Point of Care 168 mg/dl (70-99)
[2023-08-11] MEDS: CALCIUM CHLORIDE 10% SYRINGE 50 ML IV (16:31)
[2023-08-11] MEDS: CALCIUM CHLORIDE 10% SYRINGE 50 MG IV (16:31)
[2023-08-11] MEDS: NSS 500 IV (16:33)
[2023-08-11] MEDS: NOVOLOG FLEXPEN SC ×2 (16:35)
[2023-08-11] MEDS: NEURONTIN PO ×2 (16:35)
[2023-08-11] MEDS: PACERONE PO (16:36)
[2023-08-11] MEDS: TYLENOL PO ×2 (16:36→21:58)
[2023-08-11] MEDS: DILAUDID 0.25 MG IV (16:51)
--- NOTE | 2023-08-11 16:56 | CON.INTV ---
Documented by User: Breanna France, Resident, 08/11/23 17:01
Consultation
Consultation Request
Date/Time Consultation Requested: 08/11/23
Date/Time Consultation Performed: 08/11/23
Requesting Provider:
Performing Provider:
Reason for Consultation: S/P CABG x 4
Medical History
-
Chief Complaint: S/P CABG x 4
History of Present Illness:
Mr. Kevin Shipman is a 68-year-old male patient who had presented to the ED on 08/08 with chief complaints of chest pressure and SOB. NSTEMI. Cardiac catheterization showed 90% stenosis in the mid RCA, 80% stenosis of the mid LAD. 90% stenosis of the
origin of OM1 and 90% lesion in the mid circumflex immediately proximal to the origin of OM 2. On MV, sedated.
Past Medical History
Past Medical History: Other (see A&P for PMH and PSH)
Social History
Tobacco: Non-smoker
Alcohol: Daily (2 beers)
Living: With Family
Family History
Family History: CAD
Allergies / Home Medications
Allergies
Allergy/AdvReac Type Severity Reaction Status Date / Time
No Known Allergies Allergy Verified 08/09/23 08:00
Home Medications
�Medication �Instructions �Recorded �Confirmed �Last Taken �Type
Nervive Nerve Health Tabs 1 tab PO DAILY Supplement 08/09/23 08/09/23 08/09/23 History
acetaminophen 650 mg 650 mg PO Q8HPRN PRN mild pain 08/09/23 08/09/23 08/07/23 History
tablet,extended release
carvedilol 12.5 mg tablet 12.5 mg PO BID Heart Failure 08/09/23 08/09/23 08/09/23 History
unmknpjgl-LAR-CC-acetaminophen 7.5 15 ml PO HSPRN PRN sleep 08/09/23 08/09/23 08/08/23 History
mg-60 [id number]/30mL oral liqd
psyllium 1 packet PO Q72H Constipation 08/09/23 08/09/23 08/08/23 History
turmeric 400 mg capsule 2,000 mg PO DAILY Constipation 08/09/23 08/09/23 08/09/23 History
valsartan 320 mg tablet 320 mg PO DAILY Blood Pressure 08/09/23 08/09/23 08/09/23 History
zolpidem 10 mg tablet 10 mg PO HS Sleep 08/09/23 08/09/23 08/07/23 History
Review of Systems
-
Unable to Obtain full review of systems at this time due to: Patient Intubation
Vitals / Labs / Diagnostic Testing
Vital Signs
Temp Pulse Resp BP Pulse Ox
97.7 F 71 14 155/95 97
08/11/23 16:06 08/11/23 16:06 08/11/23 16:06 08/11/23 05:45 08/11/23 16:06
Lab Data
08/11/23 15:00
Laboratory Results
08/10/23 08/11/23 08/11/23
17:42 00:18 06:50
PT
INR
APTT 47.3 H 60.0 H Cancelled
pH
pCO2
pO2
HCO3
O2 Delivery Level
08/11/23
15:00
PT 17.4 H
INR 1.42
APTT 29.2
pH 7.39
pCO2 40
pO2 66 L
HCO3 24.2
O2 Delivery Level Not Reportable
Diagnostic Testing:
Physical Exam
-
HEENT: Normocephalic
Cardiovascular: S1/S2
Respiratory: Other (mechanical ventilation breath sounds)
GI: Soft, Non Distended and Non Tender
Neurology: Other (sedated)
Assessment
-
ASSESSMENT:
Mr. Kevin Shipman is a 68-year-old male patient who had presented to the ED on 08/08 with chief complaints of chest pressure and SOB. NSTEMI, seen by Cards. Cardiac catheterization showed 90% stenosis in the mid RCA, 80% stenosis of the mid LAD. 90%
stenosis of the origin of OM1 and 90% lesion in the mid circumflex immediately proximal to the origin of OM 2. Seen by CTSx, candidate for CABG.
IMPRESSION:
S/P CABG x 4 on 08/10
Conditons OPERATIONS AND MAINTENANCE SPECIALIST:
Hypertension
Hypercholesteremia
CHERYL,
Orthopedic (laminectomy X 2, Carpal tunnel Bilateral, Foot surgery, Right and left rotator cuff)
Hernia repair bilateral
PLAN:
Ventilator settings reviewed
SIMV: 14-600-5-0.6 (POx 97%)
FiO2 will be weaned
Minute ventilation will be adjusted
Arterial blood gases will be monitored
Spontaneous breathing trial will be attempted with hopeful extubation after anesthesia/sedation wear off
Postop CXR: portable, ETT, RIJV SGC, sternal wiring, chest tubes, no infiltrates
Pressors/antihypertensive/inotropes/diuretics will be provided as needed
Monitor chest tube output
Monitor hemoglobin
Monitor platelet count and coags
Transfuse blood product if needed
CT surgery following chest tubes
Monitor blood sugar
Insulin drip per protocol
Aspiration precautions
DVT prophylaxis
Early nutrition
Early mobilization

Documented by User: Juvenal Raymond MD 08/11/23 17:33
Medical History
Social History
Drug: None
Personal:
Physical Exam
-
HEENT: Moist Mucous Membranes and Other (KELBY)
Cardiovascular: Peripheral Edema (ANDIE edema) and Other (RIJV SGC)
Respiratory: Non-Labored Respirations and Other (chest tubes)
Assessment
-
ASSESSMENT:
Mr. Kevin Shipman is a 68-year-old male patient who had presented to the ED on 08/08 with chief complaints of chest pressure and SOB. NSTEMI, seen by Cards. Cardiac catheterization showed 90% stenosis in the mid RCA, 80% stenosis of the mid LAD. 90%
stenosis of the origin of OM1 and 90% lesion in the mid circumflex immediately proximal to the origin of OM 2. Seen by CTSx, candidate for CABG.
IMPRESSION:
S/P CABG x 4 on 08/10
Conditons OPERATIONS AND MAINTENANCE SPECIALIST:
Hypertension
Hypercholesteremia
CHERYL, on CPAP s O2, follows at [facility]
Orthopedic (laminectomy X 2, Carpal tunnel Bilateral, Foot surgery, Right and left rotator cuff)
Hernia repair bilateral
PLAN:
Ventilator settings reviewed
SIMV: 14-600-5-0.6 (POx 97%)
FiO2 will be weaned
Minute ventilation will be adjusted
Arterial blood gases will be monitored
Spontaneous breathing trial will be attempted with hopeful extubation after anesthesia/sedation wear off
Postop CXR: portable, ETT, RIJV SGC, sternal wiring, chest tubes, no infiltrates
Pressors/antihypertensive/inotropes/diuretics will be provided as needed
Can resume own CPAP device after extubation
CPAP set at 10.5 cwp, follows at [facility]
Monitor chest tube output
Monitor hemoglobin
Monitor platelet count and coags
Transfuse blood product if needed
CT surgery following chest tubes
Monitor blood sugar
Insulin drip per protocol
Aspiration precautions
DVT prophylaxis
Early nutrition
Early mobilization
D/w patient's
D/w CTSx RN
Critical care time: 35 min
ATTENDING PHYSICIAN ATTESTATION:
(Initial Visit:)
I personally saw and evaluated the patient along with the FM Resident Dr France.
Discussed with Resident and discussed in rounds with MDT.
I agree with Resident�s findings and plan as documented in the resident�s note, which was edited by myself.
--- NOTE | 2023-08-11 17:00 | PTCARENOTE ---
Patient awakening to voice but remains groggy. Did follow simple commands and move all extremities
[2023-08-11 17:14] LABS: Glucose - Point of Care 142 mg/dl (70-99)
[2023-08-11] MEDS: LIPITOR PO (18:15)
[2023-08-11 18:23] LABS: Glucose - Point of Care 141 mg/dl (70-99)
--- NOTE | 2023-08-11 18:30 | PTCARENOTE ---
PAtient is awakening to voice and -2 RASS. Precedex gtt off. CI's remain in the 1.6 range: Danielle, SOIL SCIENCE TECHNICAL OFFICER aware of same. New orders received. Will initiate a CPAP wean trial per protocol and attempt to wean levophed after albumin 5% 250ml.
[2023-08-11] MEDS: OFIRMEV 100 IV (19:03)
[2023-08-11 19:19] LABS: Glucose - Point of Care 142 mg/dl (70-99)
[2023-08-11 19:20] LABS: B.E. -1.8 mmol/L; HCO3 23.7 mmol/L (21-28); Hematocrit 35.1 % (39.0-52.0); Hemoglobin 12.5 g/dL (13.0-18.0); O2 Saturation % 93.6 % (94-98); PCO2 42 mmHg (35-48); PO2 66 mmHg (83-108); Platelet Count 161 10^3/uL (130-400); Potassium 4.9 mMOL/L (3.5-5.1); Sodium 134 mMOL/L (136-145); pH 7.36 (7.35-7.45)
--- NOTE | 2023-08-11 19:50 | RESPNOTE ---
PT was extubated successfully following a CPAP wean with an acceptable ABG. PT was suctioned before and after and was placed on a 6 L nasal cannula. After some encouragement, he was able to successfully move the I/S ball one time to 1,000 mls,
reinforcement needed.
[2023-08-11] MEDS: CARDENE 200 IV (19:57)
[2023-08-11] MEDS: BACTROBAN 2% OINTMENT NASAL (20:00)
--- NOTE | 2023-08-11 20:00 | PTCARENOTE ---
Received pt from [facility]; pt intubated post op CABGx4; Pt is awake, alert, and follows commands; NSR on monitor, VSS; heart sounds audible, right radial, left ulnar, and b/l DP pulses palpable, +1 ANDIE; lung sound diminished at b/l bases, pt
extubated at 1950 to 6 LNC, spo2 95%, x2 MS and right/left pleural CT to -20 wall suction, no air leaks, no tidaling, no crepitus, pt has brought home CPAP to wear at night; hypoactive BS x4 quadrants, abdomen soft non tender; pt voiding clear
yellow urine via goins catheter; surgical sites maintained; right IJ cordis, swan@50, and PIV all maintained, leveled, and zeroed; insulin, cardene, and levophed gtt infusing. Pt washed with CHG wipes, goins care provided, and new gown; Family
notified of extubation and are now at bedside; call viramontes within reach; will continue to monitor.
[2023-08-11] MEDS: DILAUDID 0.5 MG IV (20:35)
[2023-08-11] MEDS: ANCEF 5 IV (20:35)
[2023-08-11] MEDS: LOW STRENGTH ASPIRIN 81 MG PO (20:36)
[2023-08-11 20:55] LABS: Glucose - Point of Care 138 mg/dl (70-99)
[2023-08-11] MEDS: SENOKOT-S PO (21:11)
[2023-08-11 21:54] VITALS: BP 113/65
[2023-08-11] MEDS: NEURONTIN 100 MG PO (21:58)
[2023-08-11] MEDS: PACERONE 200 MG PO (21:58)
[2023-08-11 22:00] VITALS: BP 98/71
[2023-08-11] MEDS: ASPIR LOW (ENTERIC COATED) PO (22:17)
[2023-08-11] MEDS: DIOVAN PO (22:18)
[2023-08-11] MEDS: COREG PO (22:18)
[2023-08-11 23:00] VITALS: BP 105/70
--- NOTE | 2023-08-11 23:02 | RESPNOTE ---
O2 adapter was added to his home machine and placed on 6 L. PT is tolerating well, will continue to monitor resp. status.
[2023-08-11 23:06] LABS: Glucose - Point of Care 137 mg/dl (70-99)
[2023-08-11 23:53] LABS: Glucose - Point of Care 125 mg/dl (70-99)
[2023-08-12] VITALS (43 sets, daily range): BP systolic 89–130; BP diastolic 53–85; PULSE 62; O2SAT 97–98; BMI 38.9
--- NOTE | 2023-08-12 | PTCARENOTE ---
Pt assessment unchanged; pt resting comfortably in bed; NSR on monitor, VSS; RT placed pt's home CPAP on with 6LNC, pt tolerating it well; call viramontes within reach; will continue to monitor.
[2023-08-12] MEDS: ALBUMIN 5% IV (00:01)
[2023-08-12 01:08] LABS: Glucose - Point of Care 139 mg/dl (70-99)
[2023-08-12] MEDS: ROXICODONE 5 MG PO ×4 (01:10→21:12)
[2023-08-12 02:19] LABS: Glucose - Point of Care 117 mg/dl (70-99)
[2023-08-12 03:13] LABS: Glucose - Point of Care 89 mg/dl (70-99)
[2023-08-12 03:15] LABS: Glucose - Point of Care 119 mg/dl (70-99)
[2023-08-12] MEDS: LEVOPHED 250 IV (03:23)
[2023-08-12 03:40] LABS: Hemoglobin 11.7 g/dL (13.0-18.0); Mean Corp Hgb Conc. 34.4 g/dL (33.0-37.0); Mean Corpuscular Hgb 32.4 pg (27.0-31.0); Mean Corpuscular Volume 94.2 fL (80.0-94.0); Mean Platelet Volume 10.5 fL (7.4-10.4); Platelet Count 166 10^3/uL (130-400); Red Blood Cell Count 3.61 10^6/uL (4.70-6.10); Red Cell Dist. Width 13.4 % (11.5-14.5); White Blood Cell Count 16.5 10^3/uL (4.8-10.8)
[2023-08-12] MEDS: DOBUTREX 500 MG 250 IV (04:00)
--- NOTE | 2023-08-12 04:00 | PTCARENOTE ---
Pt's CI starting to trend down, along with urine output, CVPA made aware, awaiting orders. See worklist for urine output and VS for CI.
[2023-08-12 04:08] LABS: Blood Urea Nitrogen 21 mg/dl (9-20); Calcium 8.6 mg/dl (8.4-10.2); Carbon Dioxide 22 mmol/L (22-30); Chloride 108 mmol/L (98-107); Estimated Creatinine Clearance 121 ml/min; Glucose 100 mg/dl (70-99); Magnesium 2.3 mg/dl (1.6-2.3); Potassium 4.6 mmol/L (3.5-5.1); Sodium 137 mmol/L (135-145); eGFR > 60.00
[2023-08-12] MEDS: ANCEF 5 IV ×2 (04:40→12:56)
[2023-08-12] MEDS: DILAUDID 0.5 MG IV ×2 (04:41→22:34)
[2023-08-12 04:42] LABS: Mixed Venous O2 Saturation 68.5 %
[2023-08-12 05:11] LABS: Glucose - Point of Care 103 mg/dl (70-99)
--- NOTE | 2023-08-12 05:46 | W.PN.CT ---
Today's Communication / Plan
-
Plan:
-hemodynamically stable: on 2.5, CI 2.59
-veda removed 2/2 dysfunction, however pt remains on ICU phase. BP stable, levo off
-cont cardene 2.5 for radial graft - do not discontinue without approval from Dr Milian -> consider transition to oral regimen today
-91% SpO2 but comfortable on 6L NC, CPAP qHS
-monitor UOP: 590 in 12hr, 1340 in 24hr
-monitor CT output: med 150 in 12hr / 240 in 24hr; Pl 120 in 12hr / 225 in 24hr
-IS / Chest PT
-PT/OT, OOB, ambulate as tolerates
-dispo planning
Assessment / Plan
-
s/p CABG x 4 (BARR[place] to LAD, L RA to OM1, GSV to OM2, GSV to RPDA) 08/11/[address] Milian - POD #1
-MVCAD
-HTN
-HLD
-hgb A1c 6.4
-obesity
-CHERYL on home CPAP
-s/p laminectomy
-s/p BL rotator cuff repair
-s/p BL CTR
-s/p BL hernia repair
Discussed patient care with: Care Team
Subjective
Procedure
s/p CABG x 4 (BARR[place] to LAD, L RA to OM1, GSV to OM2, GSV to RPDA) 08/11/[address] Milian
-
Date of Service: August 12, 2023
Objective Data
-
Lab Results
08/11/23 19:15
08/11/23 15:00
PT 17.4 Sec (11.4-14.6) H 08/11/23 15:00
INR 1.42 08/11/23 15:00
APTT 29.2 Sec (23.4-35.0) 08/11/23 15:00
Vital Signs
Vital Signs
Temp Pulse Resp BP Pulse Ox
98.6 F 64 18 155/95 94
08/11/23 21:00 08/11/23 20:30 08/11/23 21:00 08/11/23 05:45 08/11/23 21:00
CT Intake/Output/Weight
08/11/23 08/11/23 08/12/23
06:59 18:59 06:59
Intake Total 80 / 446 947.2 / 1158.7 211.5 / 1158.7
Output Total 945 / 1400 455 / 1400
Balance 80 / -154 2.2 / -241.3 -243.5 / -241.3
SaO2: 94
Physical Exam
-
General: Awake, Oriented and AOx3
Cardiovascular: Regular rate & rhythm
Respiratory: Clear and Equal
Sternum: Stable
Incision: Clean, Dry and Intact
Extremities: Edema +1
Data Reviewed
-
Lab Results: Results Reviewed
Medications: Active Meds Reviewed
Chest X-Ray: Image Reviewed
Vital Signs / Labs
-
Vital Signs and Labs:
Temp Pulse Resp BP Pulse Ox
98.8 F 78 14 130/70 91
08/12/23 05:00 08/12/23 05:00 08/12/23 05:00 08/12/23 05:00 08/12/23 05:00
08/12/23 03:10
08/12/23 03:10
08/10/23 08/11/23 08/11/23
12:50 08:48 10:48
WBC
RBC
Hgb
Hct
MCV
MCH
Plt Count
MPV
PT
pO2
ABG O2 Sat (Measured)
POC ABG O2 Sat (Calc) 97.8 H
Sodium
Chloride
BUN
Glucose
Magnesium
POC pH
POC pO2
POC Glucose 144 H
POC Ionized Calcium
POC ACT+ 484 H
POC Hematocrit 40 L
Crossmatch IS Only See Detail
08/11/23 08/11/23 08/11/23
11:28 11:53 11:57
WBC
RBC
Hgb
Hct
MCV
MCH
Plt Count
MPV
PT
pO2
ABG O2 Sat (Measured)
POC ABG O2 Sat (Calc) 100.0 H 99.9 H
Sodium
Chloride
BUN
Glucose
Magnesium
POC pH 7.47 H
POC pO2 402 H 258 H
POC Glucose 152 H 158 H
POC Ionized Calcium 1.02 L 1.07 L
POC ACT+ 577 H 555 H
POC Hematocrit 33 L 34 L
Crossmatch IS Only
08/11/23 08/11/23 08/11/23
12:44 12:47 13:12
WBC
RBC
Hgb
Hct
MCV
MCH
Plt Count
MPV
PT
pO2
ABG O2 Sat (Measured)
POC ABG O2 Sat (Calc) 99.9 H
Sodium
Chloride
BUN
Glucose
Magnesium
POC pH
POC pO2 337 H
POC Glucose 164 H
POC Ionized Calcium 1.07 L
POC ACT+ 788 H 476 H
POC Hematocrit 34 L
Crossmatch IS Only
08/11/23 08/11/23 08/11/23
13:15 13:51 14:59
WBC
RBC
Hgb
Hct
MCV
MCH
Plt Count
MPV
PT
pO2
ABG O2 Sat (Measured)
POC ABG O2 Sat (Calc) 99.9 H 99.1 H
Sodium
Chloride
BUN
Glucose
Magnesium
POC pH
POC pO2 322 H 136 H
POC Glucose 179 H 158 H 149 H
POC Ionized Calcium 1.07 L
POC ACT+
POC Hematocrit 37 L 36 L
Crossmatch IS Only
08/11/23 08/11/23 08/11/23
15:00 16:15 17:11
WBC
RBC
Hgb 12.9 L
Hct 36.3 L
MCV
MCH
Plt Count 125 L
MPV
PT 17.4 H
pO2 66 L
ABG O2 Sat (Measured)
POC ABG O2 Sat (Calc)
Sodium 135 L
Chloride
BUN
Glucose 144 H
Magnesium 2.5 H
POC pH
POC pO2
POC Glucose 168 H 142 H
POC Ionized Calcium
POC ACT+
POC Hematocrit
Crossmatch IS Only
08/11/23 08/11/23 08/11/23
18:20 19:15 20:54
WBC
RBC
Hgb 12.5 L
Hct 35.1 L
MCV
MCH
Plt Count
MPV
PT
pO2 66 L
ABG O2 Sat (Measured) 93.6 L
POC ABG O2 Sat (Calc)
Sodium 134 L
Chloride
BUN
Glucose
Magnesium
POC pH
POC pO2
POC Glucose 141 H 142 H 138 H
POC Ionized Calcium
POC ACT+
POC Hematocrit
Crossmatch IS Only
08/11/23 08/11/23 08/12/23
23:05 23:52 01:06
WBC
RBC
Hgb
Hct
MCV
MCH
Plt Count
MPV
PT
pO2
ABG O2 Sat (Measured)
POC ABG O2 Sat (Calc)
Sodium
Chloride
BUN
Glucose
Magnesium
POC pH
POC pO2
POC Glucose 137 H 125 H 139 H
POC Ionized Calcium
POC ACT+
POC Hematocrit
Crossmatch IS Only
08/12/23 08/12/23 08/12/23
02:17 03:10 03:14
WBC 16.5 H
RBC 3.61 L
Hgb 11.7 L
Hct 34.0 L
MCV 94.2 H
MCH 32.4 H
Plt Count
MPV 10.5 H
PT
pO2
ABG O2 Sat (Measured)
POC ABG O2 Sat (Calc)
Sodium
Chloride 108 H
BUN 21 H
Glucose 100 H
Magnesium
POC pH
POC pO2
POC Glucose 117 H 119 H
POC Ionized Calcium
POC ACT+
POC Hematocrit
Crossmatch IS Only
08/12/23
05:09
WBC
RBC
Hgb
Hct
MCV
MCH
Plt Count
MPV
PT
pO2
ABG O2 Sat (Measured)
POC ABG O2 Sat (Calc)
Sodium
Chloride
BUN
Glucose
Magnesium
POC pH
POC pO2
POC Glucose 103 H
POC Ionized Calcium
POC ACT+
POC Hematocrit
Crossmatch IS Only
[2023-08-12] MEDS: TYLENOL 1000 MG PO ×3 (06:16→21:12)
[2023-08-12 07:00] LABS: Glucose - Point of Care 113 mg/dl (70-99)
--- NOTE | 2023-08-12 07:00 | PTCARENOTE ---
Per Dr Milian, cardiac index of 1.7 is appropriate for this pt based on pre-op index; Dr Milian stated that levophed, cardene, doubutamine gtt could be d/c and pt delined; orders place in [facility]; pt delined, goins removed, pt OOB to chair; call
viramontes within reach; handoff to dayshift.
--- NOTE | 2023-08-12 07:15 | PTCARENOTE ---
Unable to obtained weight, pt was lightheaded and supported oob into chiar; Standing scale weight will be obtained by dayshit when pt is more acclimated.
--- NOTE | 2023-08-12 07:18 | W.PN.INTV ---
Today's Communication / Plan
Recommendations
IS
APAP
Reconsult prn
Assessment
-
ASSESSMENT:
Mr. Kevin Shipman is a 68-year-old male patient who had presented to the ED on 08/08 with chief complaints of chest pressure and SOB. NSTEMI, seen by Cards. Cardiac catheterization showed 90% stenosis in the mid RCA, 80% stenosis of the mid LAD. 90%
stenosis of the origin of OM1 and 90% lesion in the mid circumflex immediately proximal to the origin of OM 2. Seen by CTSx, candidate for CABG.
IMPRESSION:
S/P CABG x 4 on 08/10
Conditons KNUCKLER:
Hypertension
Hypercholesteremia
CHERYL, on APAP s O2, follows at [facility]
Orthopedic (laminectomy X 2, Carpal tunnel Bilateral, Foot surgery, Right and left rotator cuff)
Hernia repair bilateral
PLAN:
Postop CXR: portable, ETT, RIJV SGC, sternal wiring, chest tubes, no infiltrates
Today's CXR reviewed, interim extubation, line/tubes in position, no infiltrates
Pressors/antihypertensive/inotropes/diuretics will be provided as needed
Continue outpatient APAP
Continue following at [facility]
Monitor chest tube output
Monitor hemoglobin
Monitor platelet count and coags
Transfuse blood product if needed
CT surgery following chest tubes
Monitor blood sugar
Insulin drip per protocol
Aspiration precautions
Early nutrition
Early mobilization
D/w patient's 08-10
Reconsult as needed
Subjective Dataa
Subjective Data
Date of Service:
Date of Service: August 12, 2023
Chief Complaint: Screen Roller Follow Up
Subjective:
No major events reported overnight
Extubated with no issue yesterday
Sitting in chair, feeling well
Close history of CHERYL, use APAP device on a nightly basis, does not need O2 at home along with APAP, follows with close likely
Use APAP last night with no issue
Review of Systems
General: Fever (n), Sweats (n), Chills (n) and Satisfactory Appetite
HEENT: Epistaxis (n) and Dysphagia (n)
Cardiopulmonary: Dyspnea (n), Cough (n) and Chest Pain (Incisional)
GI: Abdominal Pain (n), Nausea (n) and Vomiting (n)
Neuro: Weakness (n)
Genitourinary: Hematuria (n)
Objective Data
Data Reviewed
Vital Signs / I&O / Oxygen:
Vital Signs
Temp Pulse Resp BP Pulse Ox
98.9 F 88 15 118/78 93
08/12/23 06:00 08/12/23 07:06 08/12/23 07:00 08/12/23 07:06 08/12/23 07:15
Intake and Output
08/11/23 08/12/23 08/13/23
06:59 06:59 06:59
Intake Total 446 / 446 1774.1 / 1787.6 13.5 / 13.5
Output Total 600 / 600 1890 / 1920 30 / 30
Balance -154 / -154 -115.9 / -132.4 -16.5 / -16.5
SaO2 [CPAP/PSV] 93
SaO2 [SIMV] 96
SaO2 93
Nasal Cannula flow liters per 4
minute
Physical Exam
General: Comfortable
HEENT: Normocephalic and Moist Mucous Membranes
Cardiovascular: Regular Rhythm, Peripheral Edema (n) and Calf Tenderness (n)
Respiratory: Clear, Non-Labored Respirations, Stridor (n) and Chest Tube
GI: Soft, Non Distended and Non Tender
Neurology: Awake, AO x 3 and No Motor Deficits
Skin: Warm
Labs/Micro/Reports
Lab Data
08/12/23 03:10
08/12/23 03:10
Laboratory Results
08/11/23 08/11/23 08/11/23
06:50 15:00 19:15
PT 17.4 H
INR 1.42
APTT Cancelled 29.2
pH 7.39 7.36
pCO2 40 42
pO2 66 L 66 L
HCO3 24.2 23.7
O2 Delivery Level Not Reportable
[2023-08-12] MEDS: NOVOLOG FLEXPEN SC ×2 (07:19→11:26)
[2023-08-12] MEDS: NORVASC PO (07:29)
[2023-08-12] MEDS: FLOMAX 0.400000000000000022 MG PO (07:29)
[2023-08-12] MEDS: LOW STRENGTH ASPIRIN PO (07:29)
[2023-08-12] MEDS: NEURONTIN 100 MG PO ×3 (07:30→21:12)
[2023-08-12] MEDS: LOW STRENGTH ASPIRIN 81 MG PO (07:35)
--- NOTE | 2023-08-12 07:56 | W.PN.CD ---
Today's Communication / Plan
-
Encourage incentive spirometry.
Ambulate when appropriate.
Chest tube/pain management per CT surgery.
Consider changing nicardipine to PO nifedipine/amlodipine (low dose) for free arterial graft.
Slow wean of norepinephrine.
Given fall in weight, low threshold for albumin/LR if patient's orthostasis/BP needs support.
Impression / Plan
-
Impression/Plan: 68 y/o male with HTN and HLD admitted with NSTEMI, found to have MVCAD.
#CAD/NSTEMI:
-Trop peaked at 0.4.
-Echo: LVEF 55-60%, no sig valve disease. Intra-op MANDA: EF 55%.
-Multivessel CAD on cath.
-s/p CABG x 4 (BARRINGTON to LAD, L RA to OM1, GSV to OM2, GSV to RPDA) 08/11/[address] Milian
-CI support with norepinephrine. PA catheter discontinued. Slow wean of Norepi. Low threshold for albumin if any BP support/orthostasis needed.
-Change nicardipine to nifedipine/amlodipine if ok with surgery (very low dose given blood pressure).
-Continue ASA, statin.
-Encourage incentive spirometry.
-Ambulate when appropriate.
-Chest tube/pain management per CT surgery.
#Hypertension
-Chronic, stable.
-Monitor closely post-op.
-We will adjust/restart medications as indicated.
#Hypercholesterolemia
-Atorvastatin 80mg started this admission.
-Goal LDL < 55.
Critical Care Time = 40 minutes.
Subjective/Interval History:
CABG yesterday.
Extubated to 6LNC. Now down to 3LNC.
CI trended down. Dobutamine added. CI back up to 2.59. PA catheter discontinued. Dobutamine off.
Weight is down from pre-op.
Norepinephrine added.
DATA:
Cardiac Catheterization, 08/09/2023:
CONCLUSIONS
1. Right dominant circulation with a critical, 90% stenosis in the mid RCA, a long, 70% lesion in the proximal/mid LAD spanning the origin of D1, and 80% lesion in the mid LAD immediately after the takeoff of D2, a 90% lesion in the origin of OM1
and a 90% lesion in the mid circumflex, immediately proximal to the origin of OM 2.
2. Moderately elevated filling pressures (LVEDP = 21 mmHg at 144.2 kg) with evidence of diastolic dysfunction (A wave to 31 mmHg).
TTE, 08/09/2023:
CONCLUSIONS
Normal biventricular size and systolic function without regional wall motion
abnormality.
No significant valvular disease.
Compared to previous echo 04/15/23, the aortic root is 3.7cm on today's study
and was 4.0cm on the prior.
Physical Exam
Vital Signs/Labs
Vital Signs
Temp Pulse Resp BP Pulse Ox
37.2 C 59 15 100/67 93
08/12/23 06:00 08/12/23 07:29 08/12/23 07:00 08/12/23 07:29 08/12/23 07:15
08/10/23 08/11/23 08/12/23
11:59 11:59 11:59
Actual Weight 142.3 kg 141.3 kg
08/12/23 03:10
08/12/23 03:10
PT 17.4 Sec (11.4-14.6) H 08/11/23 15:00
INR 1.42 08/11/23 15:00
APTT 29.2 Sec (23.4-35.0) 08/11/23 15:00
Magnesium 2.3 mg/dl (1.6-2.3) 08/12/23 03:10
Triglycerides 169 mg/dl (10-149) H 08/09/23 08:11
LDL Cholesterol, Calc 139 mg/dl 08/09/23 08:11
VLDL Cholesterol, Calc 33 mg/dl (0-30) H 08/09/23 08:11
HDL Cholesterol 53 mg/dl 08/09/23 08:11
LAB Results
08/09/23 08/09/23 08/09/23
08:11 09:14 11:53
Troponin I 0.049 H* 0.070 H* D 0.254 H* D
08/09/23 08/09/23 08/10/23
14:28 14:28 01:50
Troponin I 0.415 H* D Cancelled 0.449 H*
08/10/23
10:38
Troponin I 0.279 H*
Physical Exam
Constitutional: No acute distress and Comfortable
EENT: Anicteric and Moist mucous membranes
Cardiovascular: Rhythm & rate is regular, Pedal edema is absent, JVD pressure is normal, S1S2 is normal and Murmur/rub/gallop absent
Respiratory: Respiratory effort normal, Lungs clear to auscul., Wheeze Absent, Crackles Absent and Rhonchi Absent
GI: Soft, Distention absent, Flat, Non tender and Normal bowel sounds
Neuro/Psych: AO x 3
Data Reviewed
-
Date of Service: August 12, 2023
Medical Decision Making: Reviewed Test Results, Independent Historian Assessment and Review of Case with other Provider
EKG: Tracing Personally Visualized and interpreted and Report Reviewed by me
Echo: Report Reviewed by me
X-Ray/CT/US/MRI/NUC/PET: Image Personally Visualized and interpreted and Report Reviewed by me
Medical Tests (PFT, Pathology etc): Image Personally Visualized and interpreted and Report Reviewed by me
Labs: Labs Reviewed by me
Old Records: Reviewed
--- NOTE | 2023-08-12 08:00 | PTCARENOTE ---
Patient received from shift nurse manager resting in bed, AAO X 3. NSR via cm, SaO2 @93% on 4lnc. RIJ Cordis w/kvo infusing. Insulin infusing peripherally, titrating per glycemic protocol. Mediastinal chest tubes x 2, R and L pleural chest tubes x 2 -
connected to two separate pleurevac chambers, both to -20cm suction w/no air leaks noted. All procedural sites stable. DTV. Patient updated to plan of care for the day, in agreement. See work list for full assessment and interventions performed.
[2023-08-12] MEDS: PROTONIX 40 MG PO (08:23)
[2023-08-12] MEDS: FLEXERIL 5 MG PO ×2 (08:23→16:17)
[2023-08-12] MEDS: BACTROBAN 2% OINTMENT 1 APPLIC NASAL ×2 (08:23→19:27)
[2023-08-12] MEDS: SENOKOT-S 1 TABLET PO ×2 (08:23→19:28)
[2023-08-12 09:07] LABS: Glucose - Point of Care 101 mg/dl (70-99)
[2023-08-12] MEDS: PACERONE PO ×3 (09:15→19:28)
[2023-08-12] MEDS: NOVOLIN R INSULIN INFUSION 100 IV (09:16)
[2023-08-12] MEDS: MAGNESIUM OXIDE 500 MG PO ×2 (09:19→19:27)
[2023-08-12] MEDS: NSS IV (09:49)
[2023-08-12] MEDS: NORVASC 2.5 MG PO (09:51)
[2023-08-12] MEDS: LIDOCAINE 4% PATCH 1 PATCH TOPICAL (09:58)
--- NOTE | 2023-08-12 09:58 | W.PN.ANS.POP ---
Anesthesia Post Operative
- Anesthesia Post Op Note
Vital Signs Stable-See Nursing Note: Yes
Airway Patent: Yes
Adequate Pain Control: Yes
Change in Mental Status: No
Current Postoperative Nausea & Vomiting: No
Anesthesia Complications: No
General Anesthetic Recall: No
Unplanned Admission: No
Post Op Hydration Adequate: Yes
[2023-08-12 11:06] LABS: Glucose - Point of Care 120 mg/dl (70-99)
--- NOTE | 2023-08-12 12:06 | PTCARENOTE ---
VS obtained, assessment stable. Patient remains oob in chair, lunch ordered.
[2023-08-12 13:00] LABS: Glucose - Point of Care 106 mg/dl (70-99)
[2023-08-12] MEDS: ProAmatine 5 MG PO (13:56)
[2023-08-12 15:02] LABS: Glucose - Point of Care 209 mg/dl (70-99)
[2023-08-12 15:02] LABS: Glucose - Point of Care 235 mg/dl (70-99)
--- NOTE | 2023-08-12 15:18 | CM ---
Reviewed chart, Met with and Mrs. Shipman to review discharge plans. Mrs. Shipman states he has ten steep steps to get to bedroom/full bathroom. She expressed concerned that he may need Rehab. She would like to see if he would qualify for acute
Rehab. [facility] at [facility]. Reviewed with her the role of insurance pays with getting approval for acute rehab. Also reviewed SNF/Rehab. with them if indicated. Will need to see his current functional level to see if he will have any skilled care
needs. He will need pre-cert with his insurance. Medical work-up in progress. The discharge plan is home with spouse and a home visit by the Cardiothoracic Transitional Care Nurse versus some level of rehab. when medically stable.
[2023-08-12 16:24] LABS: Glucose - Point of Care 166 mg/dl (70-99)
--- NOTE | 2023-08-12 16:41 | PTCARENOTE ---
VS obtained, assessment stable. Patient assisted to stand, attempted to void - unable. Bladder scan performed for 206ml. Patient denies discomfort, no distention noted.
[2023-08-12] MEDS: NOVOLOG FLEXPEN 4 UNITS SC (17:47)
[2023-08-12] MEDS: LIPITOR 80 MG PO (17:50)
[2023-08-12] MEDS: ProAmatine PO (17:55)
[2023-08-12 18:26] LABS: Glucose - Point of Care 107 mg/dl (70-99)
--- NOTE | 2023-08-12 19:30 | PTCARENOTE ---
Received pt from dayshift; pt resting comfortably in bed; pt is AAOx4, states pain is 3/10; NSR on monitor, VSS; Heart sounds audible, rub present, right radial, left ulnar, and b/l DP pulses palpable, +1 ANDIE; lung sounds diminished at b/l bases,
spo2 94% on 2 LNC, x2 MS and right and left pleural CT to -20 wall suction, no air leaks, no tidaling, no crepitus; +BS x4 quadrants, abdomen soft, non tender, round; pt due to void since goins catheter removal, on going bladder scans, see worklist;
surgical sites maintained; right IJ cordis and PIV maintained; insulin gtt infusing; call viramontes within reach; will continue to monitor.
[2023-08-12 21:06] LABS: Glucose - Point of Care 113 mg/dl (70-99)
--- NOTE | 2023-08-12 21:30 | PTCARENOTE ---
Pt bladder scanned at 2130 for 112mls of urine in bladder. This is less than previous scans. Pt was scan multiple times to capture full amount but 112mls was consistently resulted by bladder scanner. Will continue to monitor.
[2023-08-12 22:45] LABS: Glucose - Point of Care 109 mg/dl (70-99)
[2023-08-13] VITALS (16 sets, daily range): BP systolic 95–138; BP diastolic 56–78; PULSE 77; O2SAT 92; BMI 39.1
--- NOTE | 2023-08-13 | PTCARENOTE ---
Pt assessment unchanged; pt resting comfortably in bed; VSS, NSR on monitor; ongoing pain management, see MAR; pt wearing home CPAP place by RT @ 2230; call viramontes within reach; will continue to monitor.
--- NOTE | 2023-08-13 00:14 | W.PN.CT ---
Today's Communication / Plan
-
No significant events overnight
Radial harvest = weaning of Cardene; Norvasc started 2.5 mg on 08/11�
Post hypotension= requiring midodrine (5mg TID); lopressor on hold�
Insulin drip Dc = transition to sliding scale �
Low back pain = lidocaine patch�
Continue current medication = (Amio, ASA, Lipitor, Flomax)�
Acute Urine retention requiring straight cath @ 0300. Total UOP= 600ml
Consider DC CT *4�MS =120, PL = 130
Maintain Cordis�
Encourage IS and OOB�
Assessment / Plan
-
s/p CABG x 4 (BARR[place] to LAD, L RA to OM1, GSV to OM2, GSV to RPDA) 08/11/[address] Milian - POD #2
-MVCAD
-HTN
-HLD
-hgb A1c 6.4
-obesity
-CHERYL on home CPAP
-s/p laminectomy
-s/p BL rotator cuff repair
-s/p BL CTR
-s/p BL hernia repair
Subjective
Procedure
s/p CABG x 4 (B[place] to LAD, L RA to OM1, GSV to OM2, GSV to RPDA) 08/11/[address] Milian
-
Date of Service: August 13, 2023
Objective Data
-
PT 17.4 Sec (11.4-14.6) H 08/11/23 15:00
INR 1.42 08/11/23 15:00
APTT 29.2 Sec (23.4-35.0) 08/11/23 15:00
Vital Signs
Vital Signs
Temp Pulse Resp BP Pulse Ox
98.4 F 61 16 112/71 95
08/13/23 00:00 08/13/23 00:01 08/13/23 00:00 08/13/23 00:01 08/13/23 00:01
CT Intake/Output/Weight
08/12/23 08/12/23 08/13/23
06:59 18:59 06:59
Intake Total 826.9 / 1787.6 651.6 / 651.6
Output Total 945 / 1920 180 / 210 30 / 210
Balance -118.1 / -132.4 471.6 / 441.6 -30 / 441.6
SaO2: 95
Physical Exam
-
General: Awake
Cardiovascular: Regular rate & rhythm
Respiratory: Clear and Equal
Sternum: Stable
Incision: Clean, Dry and Intact
Extremities: Edema +1
[2023-08-13 00:51] LABS: Glucose - Point of Care 111 mg/dl (70-99)
--- NOTE | 2023-08-13 01:30 | PTCARENOTE ---
pt was bladder scanned at 0045 for 343ml of urine. Pt was encouraged to try to void. Pt attempted but was unsuccessful. Will continue to monitor.
[2023-08-13 03:28] LABS: Glucose - Point of Care 105 mg/dl (70-99)
[2023-08-13 03:33] LABS: Hematocrit 34.6 % (39.0-52.0); Hemoglobin 11.9 g/dL (13.0-18.0); Mean Corp Hgb Conc. 34.4 g/dL (33.0-37.0); Mean Corpuscular Hgb 31.9 pg (27.0-31.0); Mean Corpuscular Volume 92.8 fL (80.0-94.0); Mean Platelet Volume 10.6 fL (7.4-10.4); Platelet Count 195 10^3/uL (130-400); Red Blood Cell Count 3.73 10^6/uL (4.70-6.10); Red Cell Dist. Width 14.3 % (11.5-14.5); White Blood Cell Count 16.2 10^3/uL (4.8-10.8)
[2023-08-13 03:55] LABS: Glucose 100 mg/dl (70-99)
[2023-08-13 03:56] LABS: Blood Urea Nitrogen 32 mg/dl (9-20); Calcium 8.5 mg/dl (8.4-10.2); Carbon Dioxide 24 mmol/L (22-30); Chloride 103 mmol/L (98-107); Estimated Creatinine Clearance 85 ml/min; Magnesium 2.4 mg/dl (1.6-2.3); Potassium 4.2 mmol/L (3.5-5.1); Sodium 136 mmol/L (135-145); eGFR 59.84
--- NOTE | 2023-08-13 04:00 | PTCARENOTE ---
Pt bladder scanned at 0230 for 540 mls of urine; pt made multiple attempt to void but was unable; At 0330 pt was straight catheterized for 600mls; will continue to monitor.
[2023-08-13 05:00] LABS: Glucose - Point of Care 106 mg/dl (70-99)
[2023-08-13] MEDS: TYLENOL 1000 MG PO ×3 (05:44→22:27)
[2023-08-13 07:10] LABS: Glucose - Point of Care 106 mg/dl (70-99)
--- NOTE | 2023-08-13 08:05 | W.PN.CD ---
Today's Communication / Plan
-
DC carvedilol.
Start metoprolol 12.5 mg daily.
PRN midodrine.
If BP would tolerate, I would like to start diuresis soon.
Impression / Plan
-
Impression/Plan: 68 y/o male with HTN and HLD admitted with NSTEMI, found to have MVCAD.
#CAD/NSTEMI:
-Trop peaked at 0.4.
-Echo: LVEF 55-60%, no sig valve disease. Intra-op MANDA: EF 55%.
-Multivessel CAD on cath.
-s/p CABG x 4 (B[place] to LAD, L RA to OM1, GSV to OM2, GSV to RPDA) 08/11/[address] Milian
-Amlodipine 2.5 mg daily started for arterial graft.
-D/C carvedilol. Start metoprolol 12.5 mg daily. Continue to hold valsartan.
-PRN midodrine per CT surgery.
-Continue ASA, statin.
-Encourage incentive spirometry.
-Ambulate.
-BP may not permit diuresis yet.
#Urinary retension
-New diagnosis.
-Bladder scans and straight catheterization per CT surgery protocol.
#Hypertension
-Chronic, stable.
-Monitor closely post-op.
-Currently normotensive with some mild hypotension.
#Hypercholesterolemia
-Atorvastatin 80mg started this admission.
-Goal LDL < 55.
Critical Care Time = 38 minutes.
Subjective/Interval History:
Urinary retention overnight. Straight catheterization for 600 mL.
Weight is up 0.8 kg from yesterday, 4.3 kg total.
DATA:
Cardiac Catheterization, 08/09/2023:
CONCLUSIONS
1. Right dominant circulation with a critical, 90% stenosis in the mid RCA, a long, 70% lesion in the proximal/mid LAD spanning the origin of D1, and 80% lesion in the mid LAD immediately after the takeoff of D2, a 90% lesion in the origin of OM1
and a 90% lesion in the mid circumflex, immediately proximal to the origin of OM 2.
2. Moderately elevated filling pressures (LVEDP = 21 mmHg at 144.2 kg) with evidence of diastolic dysfunction (A wave to 31 mmHg).
TTE, 08/09/2023:
CONCLUSIONS
Normal biventricular size and systolic function without regional wall motion
abnormality.
No significant valvular disease.
Compared to previous echo 04/15/23, the aortic root is 3.7cm on today's study
and was 4.0cm on the prior.
Physical Exam
Vital Signs/Labs
Vital Signs
Temp Pulse Resp BP Pulse Ox
37.0 C 67 16 120/71 95
08/13/23 04:00 08/13/23 07:00 08/13/23 04:00 08/13/23 06:36 08/13/23 00:15
08/11/23 08/12/23 08/13/23
11:59 11:59 11:59
Actual Weight 141.3 kg 144.8 kg 145.6 kg
08/13/23 03:21
08/13/23 03:21
PT 17.4 Sec (11.4-14.6) H 08/11/23 15:00
INR 1.42 08/11/23 15:00
APTT 29.2 Sec (23.4-35.0) 08/11/23 15:00
Magnesium 2.4 mg/dl (1.6-2.3) H 08/13/23 03:21
Triglycerides 169 mg/dl (10-149) H 08/09/23 08:11
LDL Cholesterol, Calc 139 mg/dl 08/09/23 08:11
VLDL Cholesterol, Calc 33 mg/dl (0-30) H 08/09/23 08:11
HDL Cholesterol 53 mg/dl 08/09/23 08:11
LAB Results
08/10/23
10:38
Troponin I 0.279 H*
Physical Exam
Constitutional: No acute distress and Comfortable
EENT: Anicteric and Moist mucous membranes
Cardiovascular: Rhythm & rate is regular
Neuro/Psych: AO x 3
Patient is having his chest tubes removed.
Data Reviewed
-
Date of Service: August 13, 2023
Medical Decision Making: Reviewed Test Results, Independent Historian Assessment, Test Interpretation and Review of Case with other Provider
EKG: Tracing Personally Visualized and interpreted and Report Reviewed by me
Echo: Tracing Personally Visualized and interpreted and Report Reviewed by me
X-Ray/CT/US/MRI/NUC/PET: Image Personally Visualized and interpreted and Report Reviewed by me
Medical Tests (PFT, Pathology etc): Image Personally Visualized and interpreted and Report Reviewed by me
Labs: Labs Reviewed by me
Old Records: Reviewed
[2023-08-13] MEDS: SENOKOT-S 1 TABLET PO (08:53)
[2023-08-13] MEDS: NORVASC 2.5 MG PO (08:53)
[2023-08-13] MEDS: FLOMAX 0.400000000000000022 MG PO (08:53)
[2023-08-13] MEDS: LOW STRENGTH ASPIRIN 81 MG PO (08:54)
[2023-08-13] MEDS: PROTONIX 40 MG PO (08:54)
[2023-08-13] MEDS: ProAmatine 5 MG PO ×3 (08:54→18:18)
[2023-08-13] MEDS: PACERONE 200 MG PO ×2 (08:54→19:48)
[2023-08-13] MEDS: NEURONTIN 100 MG PO ×3 (08:54→22:27)
[2023-08-13] MEDS: MAGNESIUM OXIDE 500 MG PO ×2 (08:54→19:48)
[2023-08-13] MEDS: LIDOCAINE 4% PATCH 1 PATCH TOPICAL (08:54)
[2023-08-13] MEDS: NOVOLIN R INSULIN INFUSION 100 IV (09:01)
[2023-08-13] MEDS: BACTROBAN 2% OINTMENT 1 APPLIC NASAL ×2 (09:02→22:28)
[2023-08-13 09:05] LABS: Glucose - Point of Care 161 mg/dl (70-99)
--- NOTE | 2023-08-13 09:10 | PTCARENOTE ---
assumed care of pt from previous shift RN, sinus rhythm on tele, + peripheral pulses, +1 edema to bilateral lower extremities. Lungs diminished, pox 88% on RA, 96% on 2L NC. Coughing and deep breathing encouraged. +bs, tolerating PO intake. Pt DTV,
bladder scanned for 144ml, will monitor. MSI w aquacell dressing intact, left arm/leg/groin w surgical sites intact. CTs removed as ordered without incident. Right IJ cordis w KVO infusing, PIV right AC w insulin infusing. Plan of care reviewed
w the pt and questions encouraged.
[2023-08-13 11:05] LABS: Glucose - Point of Care 109 mg/dl (70-99)
[2023-08-13 12:20] LABS: Glucose - Point of Care 101 mg/dl (70-99)
[2023-08-13] MEDS: NSS 500 IV (14:01)
--- NOTE | 2023-08-13 15:46 | CM ---
Reviewed chart. Met with and Mrs. Shipman to review discharge plans. He states he is feeling better. He states he ambulated in the hallway but got lightheaded. We reviewed his thoughts on inpatient rehab. He states he would like to see how
he does over the weekend before making a decision about rehab. Spouse did ask about a hospital bed at home. Gave her the information regarding criteria for hospital bed to review. Prior to admission he resides with his spouse in a two story home
without any steps to enter. He has ten steep steps to go to bedroom/full bathroom. He has a powder room on the first floor. We reviewed a home visit by the Cardiothoracic Transitional Care Nurse. He is agreeable to a home visit. Medical work-up
in progress. The discharge plan is to return home with his spouse and a home visit by the Cardiothoracic Transitional Care Nurse when medically stable.
[2023-08-13] MEDS: PLAVIX 75 MG PO (16:58)
[2023-08-13] MEDS: LIPITOR 80 MG PO (18:18)
--- NOTE | 2023-08-13 20:00 | PTCARENOTE ---
assumed care of patient @ 1900. received pt laying in bed, AOX3. VSS on RA. NSR on monitor, +1 edema b/l. Lungs clear, diminished satting 92 % on room air. wears CPAP HS w/ 2l. CT dressing CDI. +BM today, tolerating diet reportedly. Trouble voiding
earlier today, will follow bladder scans. Sternal aquacel CDI, radial site CDI JOELLE. R IJ cordis with kvo patent, R AC #20 patent. pt resting comfortably in bed with call viramontes within reach .
[2023-08-13 22:27] LABS: Glucose - Point of Care 162 mg/dl (70-99)
[2023-08-13] MEDS: SENOKOT-S PO (22:28)
--- NOTE | 2023-08-13 23:34 | PTCARENOTE ---
pt placed on cpap with 2L satting 95%. bladder scanned for 299- voices no urge to urinate. resting comfortably with call viramontes within reach .
[2023-08-14] VITALS (12 sets, daily range): BP systolic 102–171; BP diastolic 61–91; PULSE 65; O2SAT 95; BMI 39.2
--- NOTE | 2023-08-14 01:31 | W.PN.CT ---
Today's Communication / Plan
-
Plan:
-No major issues overnight. Hemodynamically and neurologically intact
-BP has been soft postop, on Midodrine. Improving will place midodrine on hold today and assess moving forward
-BB on hold given soft BP and postop bradycardia. Will transition to Toprol XL per Cardiology when BP tolerates, was on Coreg @ home
-Has postop urinary retention, s/p straight cathed x 2. Started on Flomax since 2 days ago. Has resolved as of this AM, voided 550 mL
-On Norvasc for Left Radial graft, will place on hold today given soft BP
-Cont. ASA, Plavix
-Will replete ca++
-D/C cordis today
-OOB into chair/Ambulate
-No temporary PW
-Home in 1-2 days
Assessment / Plan
-
s/p CABG x 4 (BARR[place] to LAD, L RA to OM1, GSV to OM2, GSV to RPDA) 08/11/[address] Milian - POD #3
-MVCAD
-HTN
-HLD
-Prediabetes (hgb A1c 6.4)
-Class 3 obesity (BMI 40)
-CHERYL (on home CPAP)
-Suspected BPH
-s/p laminectomy
-s/p BL rotator cuff repair
-s/p BL CTR
-s/p BL hernia repair
-Acute postop blood loss/Anemia (stable without blood transfusion)
-Acute postop thrombocytopenia (stable without active bleed)
-Acute postop atelectasis/pleural effusion
-Acute postop hypovolemia with subsequent hypervolemia
-Acute postop urinary retention, S/P straight cathed x 2, flomax started
-Acute postop sinus bradycardia
Discussed patient care with: Cardiology, Nursing, Respiratory Therapy, Pharmacy and Care Team
Subjective
Procedure
s/p CABG x 4 (BARR[place] to LAD, L RA to OM1, GSV to OM2, GSV to RPDA) 08/11/[address] Milian
-
Date of Service: August 14, 2023
Pt c/o mild incisional pain, otherwise feels well
Objective Data
-
PT 17.4 Sec (11.4-14.6) H 08/11/23 15:00
INR 1.42 08/11/23 15:00
APTT 29.2 Sec (23.4-35.0) 08/11/23 15:00
Vital Signs
Vital Signs
Temp Pulse Resp BP Pulse Ox
97.9 F 69 16 137/74 95
08/13/23 23:00 08/13/23 23:00 08/13/23 23:00 08/13/23 22:23 08/13/23 23:00
CT Intake/Output/Weight
08/13/23 08/13/23 08/14/23
06:59 18:59 06:59
Intake Total 123 / 653 530 / 653
Output Total 720 / 900 570 / 570
Balance -720 / -248.4 -447 / 83 530 / 83
SaO2: 95 (RA)
Physical Exam
-
General: Awake and AOx3
Cardiovascular: Regular rate & rhythm, No Murmurs, No Rub and No Gallop
Respiratory: Decreased Breath Sounds
Sternum: Stable
Incision: Clean, Dry, Intact and Dressing Intact
Extremities: Other (+trace edema)
Data Reviewed
-
Lab Results: Results Reviewed
Medications: Active Meds Reviewed
Chest X-Ray: Report Reviewed and Image Reviewed
ECG: Report Reviewed and Image Reviewed
[2023-08-14 02:53] LABS: Hematocrit 32.1 % (39.0-52.0); Hemoglobin 11.4 g/dL (13.0-18.0); Mean Corp Hgb Conc. 35.5 g/dL (33.0-37.0); Mean Corpuscular Hgb 32.4 pg (27.0-31.0); Mean Corpuscular Volume 91.2 fL (80.0-94.0); Mean Platelet Volume 10.6 fL (7.4-10.4); Platelet Count 163 10^3/uL (130-400); Red Blood Cell Count 3.52 10^6/uL (4.70-6.10); Red Cell Dist. Width 14.3 % (11.5-14.5); White Blood Cell Count 11.7 10^3/uL (4.8-10.8)
--- NOTE | 2023-08-14 03:00 | PTCARENOTE ---
labs drawn and sent, pt stood to commode and was able to void 550 - PVR 0 mls. no other change in assessment .
[2023-08-14 03:06] LABS: Blood Urea Nitrogen 29 mg/dl (9-20); Calcium 8.4 mg/dl (8.4-10.2); Carbon Dioxide 26 mmol/L (22-30); Chloride 100 mmol/L (98-107); Estimated Creatinine Clearance 123 ml/min; Glucose 156 mg/dl (70-99); Magnesium 2.2 mg/dl (1.6-2.3); Potassium 4.1 mmol/L (3.5-5.1); Sodium 132 mmol/L (135-145); eGFR > 60.00
[2023-08-14] MEDS: CALCIUM CHLORIDE 10% SYRINGE 60 MG IV (04:21)
[2023-08-14] MEDS: TYLENOL 1000 MG PO ×3 (06:40→22:40)
[2023-08-14] MEDS: LIDOCAINE 4% PATCH 1 PATCH TOPICAL (08:28)
[2023-08-14] MEDS: NEURONTIN 100 MG PO ×3 (08:29→22:40)
[2023-08-14] MEDS: FLOMAX 0.400000000000000022 MG PO (08:29)
[2023-08-14] MEDS: SENOKOT-S PO ×2 (08:30→19:53)
[2023-08-14] MEDS: PLAVIX 75 MG PO (08:30)
[2023-08-14] MEDS: BACTROBAN 2% OINTMENT 1 APPLIC NASAL ×2 (08:30→19:53)
[2023-08-14] MEDS: MAGNESIUM OXIDE 500 MG PO ×2 (08:30→19:53)
[2023-08-14] MEDS: PACERONE 200 MG PO ×2 (08:30→19:53)
[2023-08-14] MEDS: LOW STRENGTH ASPIRIN 81 MG PO (08:31)
[2023-08-14] MEDS: PROTONIX 40 MG PO (08:31)
--- NOTE | 2023-08-14 08:45 | PTCARENOTE ---
Assumed care of patient at 0700. Pt is awake, alert, and oriented. No complaints of pain at this time. Pt remains SR with HR 70's. BP 119/68 MAP 83. Pulse oximetry 93% on room air. Pt tolerating PO diet. Voided in bedside commode. Midsternal
incision Aquacel dressing CDI. Right leg and left arm incisions well approximated and JOELLE. Right IJ cordis in place with KVO. Pt currently OOB in chair resting comfortably.
[2023-08-14] MEDS: TOPROL XL 12.5 MG PO (11:17)
--- NOTE | 2023-08-14 12:00 | PTCARENOTE ---
Pt tolerated working with cardiac rehab. Pt ambulating to bathroom with RN assistance. Pt voiding without difficulty, bladder scanned for 76ml. Remains SR with HR 60's-70's. BP 102/61 MAP 73. Pulse oximetry 93% on room air.
[2023-08-14] MEDS: NSS IV (14:08)
--- NOTE | 2023-08-14 14:46 | W.PN.CD ---
Today's Communication / Plan
-
Overall stable. Continue postop care as directed by CT surgery
Impression / Plan
-
Impression/Plan: 68 y/o male with HTN and HLD admitted with NSTEMI, found to have MVCAD.
#CAD/NSTEMI:
-Trop peaked at 0.4.
-Echo: LVEF 55-60%, no sig valve disease. Intra-op MANDA: EF 55%.
-Multivessel CAD on cath.
-s/p CABG x 4 (BARRINGTON to LAD, L RA to OM1, GSV to OM2, GSV to RPDA) 08/11/[address] Milian
-Amlodipine 2.5 mg daily started for arterial graft.
-Remains in sinus
#Urinary retension
-New diagnosis.
-Bladder scans and straight catheterization per CT surgery protocol.
#Hypertension stable
#Hypercholesterolemia
-Continue atorvastatin 80mg started this admission.
Subjective/Interval History:
Comfortable. No chest pain or shortness of breath..
DATA:
Cardiac Catheterization, 08/09/2023:
CONCLUSIONS
1. Right dominant circulation with a critical, 90% stenosis in the mid RCA, a long, 70% lesion in the proximal/mid LAD spanning the origin of D1, and 80% lesion in the mid LAD immediately after the takeoff of D2, a 90% lesion in the origin of OM1
and a 90% lesion in the mid circumflex, immediately proximal to the origin of OM 2.
2. Moderately elevated filling pressures (LVEDP = 21 mmHg at 144.2 kg) with evidence of diastolic dysfunction (A wave to 31 mmHg).
TTE, 08/09/2023:
CONCLUSIONS
Normal biventricular size and systolic function without regional wall motion
abnormality.
No significant valvular disease.
Compared to previous echo 04/15/23, the aortic root is 3.7cm on today's study
and was 4.0cm on the prior.
Physical Exam
Vital Signs/Labs
Vital Signs
Temp Pulse Resp BP Pulse Ox
98.7 F 69 18 130/68 95
08/14/23 11:16 08/14/23 14:15 08/14/23 11:16 08/14/23 14:15 08/14/23 14:15
08/13/23 08/14/23 08/15/23
06:59 06:59 06:59
Actual Weight 145.6 kg 146.2 kg
08/14/23 02:38
08/14/23 02:38
PT 17.4 Sec (11.4-14.6) H 08/11/23 15:00
INR 1.42 08/11/23 15:00
APTT 29.2 Sec (23.4-35.0) 08/11/23 15:00
Magnesium 2.2 mg/dl (1.6-2.3) 08/14/23 02:38
Triglycerides 169 mg/dl (10-149) H 08/09/23 08:11
LDL Cholesterol, Calc 139 mg/dl 08/09/23 08:11
VLDL Cholesterol, Calc 33 mg/dl (0-30) H 08/09/23 08:11
HDL Cholesterol 53 mg/dl 08/09/23 08:11
Physical Exam
Constitutional: No acute distress
Cardiovascular: Rhythm & rate is regular
Respiratory: Wheeze Absent and Rhonchi Absent
GI: Soft
Neuro/Psych: Alert
Data Reviewed
-
Date of Service: August 14, 2023
Labs: Labs Ordered by me
[2023-08-14] MEDS: NORVASC 2.5 MG PO (16:06)
--- NOTE | 2023-08-14 16:15 | PTCARENOTE ---
Pt ambulated with RN in ye became dizzy, returned to room and sat in chair, dizziness resolved. BP 124/77 MAP 92. SR, HR 60's-70's. Pt continues to ambulate to bathroom, occasionally light headed with ambulation. Voiding without issue.
[2023-08-14] MEDS: LIPITOR 80 MG PO (17:55)
--- NOTE | 2023-08-14 18:04 | PTCARENOTE ---
Pt assisted back to bed. Cordis removed per order.
--- NOTE | 2023-08-14 21:34 | PTCARENOTE ---
assumed care of patient @ 1900. received pt laying in bed, AOX3. VSS on RA. wears CPAP w/ 2L HS. NSR on monitor. +pulses, +1 b/l lower edema. lungs clear, diminished throughout. belly obese, having BMs. voiding spontaneously. surgical incisions and
dressings CDI. PIV patent . pt resting comfortably in bed with call viramontes within reach .
[2023-08-14 22:43] LABS: Glucose - Point of Care 188 mg/dl (70-99)
--- NOTE | 2023-08-14 23:17 | PTCARENOTE ---
pt resting comfortably with call viramontes within reach , no change in assessment
[2023-08-15] VITALS (9 sets, daily range): BP systolic 127–151; BP diastolic 72–83; PULSE 71–95; O2SAT 97–98; BMI 39.2
[2023-08-15 03:50] LABS: Hematocrit 34.8 % (39.0-52.0); Hemoglobin 11.7 g/dL (13.0-18.0); Mean Corp Hgb Conc. 33.6 g/dL (33.0-37.0); Mean Corpuscular Hgb 31.8 pg (27.0-31.0); Mean Corpuscular Volume 94.6 fL (80.0-94.0); Mean Platelet Volume 10.6 fL (7.4-10.4); Platelet Count 179 10^3/uL (130-400); Red Blood Cell Count 3.68 10^6/uL (4.70-6.10); Red Cell Dist. Width 13.8 % (11.5-14.5); White Blood Cell Count 9.7 10^3/uL (4.8-10.8)
[2023-08-15 04:11] LABS: Blood Urea Nitrogen 24 mg/dl (9-20); Calcium 8.4 mg/dl (8.4-10.2); Carbon Dioxide 28 mmol/L (22-30); Chloride 101 mmol/L (98-107); Estimated Creatinine Clearance 123 ml/min; Glucose 134 mg/dl (70-99); Magnesium 2.2 mg/dl (1.6-2.3); Potassium 3.9 mmol/L (3.5-5.1); Sodium 135 mmol/L (135-145); eGFR > 60.00
--- NOTE | 2023-08-15 04:11 | W.PN.CT ---
Today's Communication / Plan
-
Plan:
-No major issues overnight. Hemodynamically and neurologically intact
-Pt's BP has improved, off Midodrine and now tolerating both Norvasc for L radial graft and low dose BB (Toprol XL 12.5 mg QD)
-C/O lightheadedness/dizziness with OOB/ambulation despite improved BP, will d/c Flomax (was not on @ home) as pt is not ambulatory and voiding spontaneously
-H/h stable @
-Monitor hyponatremia, was 132 yesterday
-F/U 2-view cxr
-Encourage use of IS
-OOB into chair/Ambulate
-No temporary PW
-D/C home likely tomorrow
Assessment / Plan
-
s/p CABG x 4 (B[place] to LAD, L RA to OM1, GSV to OM2, GSV to RPDA) 08/11/[address] Milian - POD #4
-MVCAD
-HTN
-HLD
-Prediabetes (hgb A1c 6.4)
-Class 3 obesity (BMI 40)
-CHERYL (on home CPAP)
-Suspected BPH
-s/p laminectomy
-s/p BL rotator cuff repair
-s/p BL CTR
-s/p BL hernia repair
-Acute postop blood loss/Anemia (stable without blood transfusion)
-Acute postop thrombocytopenia (stable without active bleed)
-Acute postop atelectasis/pleural effusion
-Acute postop hypovolemia with subsequent hypervolemia
-Acute postop urinary retention, S/P straight cathed x 2, flomax started
-Acute postop sinus bradycardia
-Acute postop hyponatremia
Discussed patient care with: Cardiology, Nursing, Respiratory Therapy, Pharmacy and Care Team
Subjective
Procedure
s/p CABG x 4 (BARR[place] to LAD, L RA to OM1, GSV to OM2, GSV to RPDA) 08/11/[address] Milian
-
Date of Service: August 15, 2023
Pt C/o mild incisional pain and lightheadedness/dizziness with ambulation
Objective Data
-
Lab Results
08/15/23 03:09
08/15/23 03:09
PT 17.4 Sec (11.4-14.6) H 08/11/23 15:00
INR 1.42 08/11/23 15:00
APTT 29.2 Sec (23.4-35.0) 08/11/23 15:00
Vital Signs
Vital Signs
Temp Pulse Resp BP Pulse Ox
98.1 F 63 14 141/75 95
08/14/23 23:16 08/14/23 23:00 08/14/23 23:16 08/14/23 22:38 08/14/23 23:16
CT Intake/Output/Weight
08/14/23 08/14/23 08/15/23
06:59 18:59 06:59
Intake Total 570 / 693 120 / 600 480 / 600
Output Total 550 / 1120 625 / 625
Balance 20 / -427 -505 / -25 480 / -25
SaO2: 95 (RA)
Physical Exam
-
General: Awake, Oriented and AOx3
Cardiovascular: Regular rate & rhythm, No Murmurs, No Rub and No Gallop
Respiratory: Decreased Breath Sounds (at bases, otherwise clear)
Sternum: Stable
Incision: Clean, Dry, Intact and Dressing Intact
Extremities: No Edema
Data Reviewed
-
Lab Results: Results Reviewed
Medications: Active Meds Reviewed
Chest X-Ray: Report Reviewed and Image Reviewed
ECG: Report Reviewed and Image Reviewed
[2023-08-15] MEDS: KCL 20 MEQ PO (06:41)
[2023-08-15] MEDS: TYLENOL 1000 MG PO ×3 (06:41→21:26)
[2023-08-15] MEDS: LOW STRENGTH ASPIRIN 81 MG PO (07:51)
[2023-08-15] MEDS: PROTONIX 40 MG PO (07:51)
[2023-08-15] MEDS: PACERONE 200 MG PO ×2 (07:51→21:01)
[2023-08-15] MEDS: NEURONTIN 100 MG PO ×3 (07:52→21:26)
[2023-08-15] MEDS: MAGNESIUM OXIDE 500 MG PO ×2 (07:52→21:01)
[2023-08-15] MEDS: NORVASC 5 MG PO (07:52)
[2023-08-15] MEDS: PLAVIX 75 MG PO (07:52)
[2023-08-15] MEDS: TOPROL XL 12.5 MG PO ×2 (07:52→08:31)
[2023-08-15] MEDS: LIDOCAINE 4% PATCH 1 PATCH TOPICAL (07:53)
[2023-08-15] MEDS: BACTROBAN 2% OINTMENT 1 APPLIC NASAL (07:53)
[2023-08-15] MEDS: SENOKOT-S PO ×2 (07:53→19:42)
[2023-08-15] MEDS: ROXICODONE 5 MG PO (08:03)
[2023-08-15] MEDS: FLEXERIL 5 MG PO (08:03)
--- NOTE | 2023-08-15 08:59 | PTCARENOTE ---
Assumed care of patient at 0700. Pt is awake, alert, and oriented. Pt with complaints of left upper shoulder and sternal pain, PRN Roxicodone and Flexeril administered. Pt remains SR with HR 90's. BP 139/78 MAP 94. Pt with +1 LE edema. Pulse
oximetry 97% on room air. Pt tolerating PO diet. Voiding without difficulty in bathroom. Midsternal incision Aquacel dressing CDI. 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 Left radial and left leg incision approximated and [employer] SERVICE WORKER. Pt OOB in chair with call viramontes within
reach.
--- NOTE | 2023-08-15 12:30 | PTCARENOTE ---
Pt ambulated in ye with PT/OT, tolerated well. 2 view x-ray completed. Pt remains SR with HR 60s-90's, occasionally in bigeminy.
--- NOTE | 2023-08-15 13:34 | W.PN.CD ---
Today's Communication / Plan
-
Continue postop care as directed by CT surgery. No new recommendation
Impression / Plan
-
Impression/Plan: 68 y/o male with HTN and HLD admitted with NSTEMI, found to have MVCAD.
#CAD/NSTEMI:
-Trop peaked at 0.4.
-Echo: LVEF 55-60%, no sig valve disease. Intra-op MANDA: EF 55%.
-Multivessel CAD on cath.
-s/p CABG x 4 (B[place] to LAD, L RA to OM1, GSV to OM2, GSV to RPDA) 08/11/[address] Milian
-Amlodipine 2.5 mg daily started for arterial graft.
-Remains in sinus
#Urinary retension
-New diagnosis.
-Bladder scans and straight catheterization per CT surgery protocol.
#Hypertension stable
#Hypercholesterolemia
-Continue atorvastatin 80mg started this admission.
Subjective/Interval History:
Comfortable. No chest pain or shortness of breath..
DATA:
Cardiac Catheterization, 08/09/2023:
CONCLUSIONS
1. Right dominant circulation with a critical, 90% stenosis in the mid RCA, a long, 70% lesion in the proximal/mid LAD spanning the origin of D1, and 80% lesion in the mid LAD immediately after the takeoff of D2, a 90% lesion in the origin of OM1
and a 90% lesion in the mid circumflex, immediately proximal to the origin of OM 2.
2. Moderately elevated filling pressures (LVEDP = 21 mmHg at 144.2 kg) with evidence of diastolic dysfunction (A wave to 31 mmHg).
TTE, 08/09/2023:
CONCLUSIONS
Normal biventricular size and systolic function without regional wall motion
abnormality.
No significant valvular disease.
Compared to previous echo 04/15/23, the aortic root is 3.7cm on today's study
and was 4.0cm on the prior.
Physical Exam
Vital Signs/Labs
Vital Signs
Temp Pulse Resp BP Pulse Ox
98.6 F 97 16 139/78 97
08/15/23 08:08 08/15/23 08:08 08/15/23 08:08 08/15/23 07:46 08/15/23 09:47
08/14/23 08/15/23 08/16/23
06:59 06:59 06:59
Actual Weight 146.2 kg 145.9 kg
08/15/23 03:09
08/15/23 03:09
PT 17.4 Sec (11.4-14.6) H 08/11/23 15:00
INR 1.42 08/11/23 15:00
APTT 29.2 Sec (23.4-35.0) 08/11/23 15:00
Magnesium 2.2 mg/dl (1.6-2.3) 08/15/23 03:09
Triglycerides 169 mg/dl (10-149) H 08/09/23 08:11
LDL Cholesterol, Calc 139 mg/dl 08/09/23 08:11
VLDL Cholesterol, Calc 33 mg/dl (0-30) H 08/09/23 08:11
HDL Cholesterol 53 mg/dl 08/09/23 08:11
Physical Exam
Constitutional: No acute distress
Cardiovascular: Rhythm & rate is regular
Respiratory: Wheeze Absent and Rhonchi Absent
GI: Non tender
Neuro/Psych: Alert
Data Reviewed
-
Date of Service: August 15, 2023
Medical Tests (PFT, Pathology etc): Report Reviewed by me
Labs: Labs Reviewed by me
[2023-08-15] MEDS: NSS IV (13:52)
--- NOTE | 2023-08-15 16:30 | PTCARENOTE ---
Pt ambulated with RN assistance in hallway, unsteady gait, tolerated walks well. Pt remains SR with HR 60's-70's. BP 127/74 MAP 90. Pulse oximetry 97% on room air. Currently resting back in bed at this time with call viramontes within reach.
[2023-08-15] MEDS: LIPITOR 80 MG PO (17:05)
[2023-08-15] MEDS: FLUSH (NSS) 1 FLUSH IV (21:26)
--- NOTE | 2023-08-15 22:10 | PTCARENOTE ---
Assumed pt care, walking rounds completed with previous RN. Pt OOB in chair at time of assessment. AAO x 4, reports mild sternal pain/discomfort with inspiration. Pt on RA - POX 95%, coarse in B/L bases, IS & CDB encouraged, denies SOB or OG,
wearing home CPAP HS. NSR on monitor, heart tones normal, epicardial v-wire insulated, +2 LE edema B/L, pt reporting legs feeling heavy. Ambulated to bathroom with stand-by assistance, tolerated activity. Reports loose BM's, Senokot held. Voiding
without issue. Procedural sites intact. PIV present & patent. Pt bathed with CHG wipes, brushed teeth/mouthwash. See MAR. Assisted into bed with assist x 1.
[2023-08-16 00:39] VITALS: BP 132/81
--- NOTE | 2023-08-16 00:43 | PTCARENOTE ---
VS obtained. Pt sleeping between care. Using home CPAP HS. No changes from initial assessment.
[2023-08-16 03:42] VITALS: BP 140/86
[2023-08-16 04:08] VITALS: BMI 39.4
--- NOTE | 2023-08-16 04:09 | PTCARENOTE ---
Pt assisted into bathroom. Voided 700 mL. Weight obtained on standing scale. VSS. Labs drawn and sent. no other changes.
--- NOTE | 2023-08-16 04:14 | W.PN.CT ---
Today's Communication / Plan
-
Plan:
-No major issues overnight. Hemodynamically and neurologically intact
-Pt's BP has improved, off Midodrine and now tolerating both Norvasc for L radial graft and low dose BB (Toprol XL 25mg QD)
-C/O lightheadedness/dizziness has resolved
-Urinary retention has resolved
-Encourage use of IS
-OOB into chair/Ambulate
-No temporary PW
-D/C home
Assessment / Plan
-
s/p CABG x 4 (B[place] to LAD, L RA to OM1, GSV to OM2, GSV to RPDA) 08/11/[address] Milian - POD #5
-MVCAD
-HTN
-HLD
-Prediabetes (hgb A1c 6.4)
-Class 3 obesity (BMI 40)
-CHERYL (on home CPAP)
-Suspected BPH
-s/p laminectomy
-s/p BL rotator cuff repair
-s/p BL CTR
-s/p BL hernia repair
-Acute postop blood loss/Anemia (stable without blood transfusion)
-Acute postop thrombocytopenia (stable without active bleed)
-Acute postop atelectasis/pleural effusion
-Acute postop hypovolemia with subsequent hypervolemia
-Acute postop urinary retention, S/P straight cathed x 2, flomax started
-Acute postop sinus bradycardia
-Acute postop hyponatremia, 132
Discussed patient care with: Cardiology, Nursing, Respiratory Therapy, Pharmacy and Care Team
Subjective
Procedure
s/p CABG x 4 (B[place] to LAD, L RA to OM1, GSV to OM2, GSV to RPDA) 08/11/[address] Milian
-
Date of Service: August 16, 2023
Pt c/o mild incisional pain, otherwise feels well. Denies further lightheadedness/dizziness
Objective Data
-
Lab Results
08/15/23 03:09
PT 17.4 Sec (11.4-14.6) H 08/11/23 15:00
INR 1.42 08/11/23 15:00
APTT 29.2 Sec (23.4-35.0) 08/11/23 15:00
Vital Signs
Vital Signs
Temp Pulse Resp BP Pulse Ox
97.8 F 93 18 140/86 98
08/16/23 04:08 08/16/23 04:00 08/16/23 04:08 08/16/23 03:42 08/16/23 04:08
CT Intake/Output/Weight
08/15/23 08/15/23 08/16/23
06:59 18:59 06:59
Intake Total 480 / 600 400 / 400
Output Total 850 / 1475 600 / 1500 900 / 1500
Balance -370 / -875 -600 / -1100 -500 / -1100
SaO2: 98 (RA)
Physical Exam
-
General: Awake, Oriented and AOx3
Cardiovascular: Regular rate & rhythm, No Murmurs and No Gallop
Respiratory: Decreased Breath Sounds (at bases, otherwise clear)
Sternum: Stable
Incision: Clean, Dry, Intact and Dressing Intact
Extremities: Other (+trace edema)
Data Reviewed
-
Lab Results: Results Reviewed
Medications: Active Meds Reviewed
Chest X-Ray: Report Reviewed and Image Reviewed
ECG: Report Reviewed and Image Reviewed
[2023-08-16 04:51] LABS: Blood Urea Nitrogen 22 mg/dl (9-20); Calcium 8.4 mg/dl (8.4-10.2); Carbon Dioxide 25 mmol/L (22-30); Chloride 101 mmol/L (98-107); Estimated Creatinine Clearance > 125 ml/min; Glucose 128 mg/dl (70-99); Magnesium 2.3 mg/dl (1.6-2.3); Sodium 134 mmol/L (135-145); eGFR > 60.00
[2023-08-16] MEDS: TYLENOL 1000 MG PO (06:27)
[2023-08-16 08:06] VITALS: BP 145/80
[2023-08-16] MEDS: LIDOCAINE 4% PATCH 1 PATCH TOPICAL (08:07)
[2023-08-16] MEDS: PROTONIX 40 MG PO (08:07)
[2023-08-16] MEDS: MAGNESIUM OXIDE 500 MG PO (08:07)
[2023-08-16] MEDS: NORVASC 5 MG PO (08:08)
[2023-08-16] MEDS: NEURONTIN 100 MG PO (08:08)
[2023-08-16] MEDS: NSS IV (08:08)
[2023-08-16] MEDS: PLAVIX 75 MG PO (08:08)
[2023-08-16] MEDS: TOPROL XL 25 MG PO (08:08)
[2023-08-16] MEDS: SENOKOT-S PO (08:08)
[2023-08-16] MEDS: LOW STRENGTH ASPIRIN 81 MG PO (08:08)
[2023-08-16] MEDS: PACERONE 200 MG PO (08:08)
[2023-08-16] MEDS: KCL 20 MEQ PO (08:15)
[2023-08-16] MEDS: LASIX 20 MG IV (08:16)
[2023-08-16] MEDS: DULCOLAX 5 MG PO (09:05)
[2023-08-16 09:10] VITALS: BP 140/78; PULSE 65; O2SAT 99
--- NOTE | 2023-08-16 09:29 | W.DCSUMMARY ---
Discharge Summary
Discharge Data
Date of Admission: 08/09/23
Date of Discharge: 08/16/23
Total time spent discharging patient (in min): 40
-
Pending Results: No
Hospital Course
Primary care physician:
Dr. Gtz
Outpatient manager body:
Dr. Escobar
Inpatient consultants:
CBC, mate fishing vessel, PT/OT
Procedures:
1. CABG x 4 (BARR[place] to LAD, L RA to OM1, GSV to OM2, GSV to RPDA)
Primary Diagnosis:
1. Multivessel Coronary artery disease
Secondary Diagnoses:
1. Hypertension
2. Hyperlipidemia
3. Obstructive sleep apnea on home CPAP
4. Obesity
5. Prediabetes
6. Postoperative hypotension
HPI: 68-year-old male presented to [facility] on 08/08 and was ruled in for a NSTEMI. He was subsequently taken to the [facility] and was found to have multivessel coronary disease.
Hospital course: Patient was admitted to [facility] on 08/[address] surgery was consulted for surgical workup and patient was taken to the OR on 08/10. He returned to the CVICU after his CABG with Dr. Milian on Levophed, Cardene,
insulin, Precedex infusions. Precedex was weaned off and patient was extubated later that night. Dobutamine was weaned off quickly and was started for mild bradycardia in the OR. Overnight dobutamine was resumed for low cardiac index but was
weaned off later that morning. 08/12 postoperative day 1, midodrine was started for hypotension beta-blockers and Amio were held due to bradycardia. Norvasc was given for radial artery spasm protection. On 08/12 postoperative day #2 patient had
some urinary retention he was started on Flomax and straight cathed x 1. Creatinine was slightly elevated but down trended after straight cathing. Low-dose beta-blockers were resumed. Chest tubes were discontinued. On 08/13 postoperative day #3,
beta-blockers were uptitrated and midodrine was weaned off. Norvasc 2.5 mg was restarted after being held for 1 day. PT/OT were consulted. On 08/14 postoperative day #4 patient reported feeling better Norvasc was uptitrated to 5 mg and he was
started on metoprolol 25 mg daily. On 08/15 postoperative day #5, patient reports feeling better he was given 20 mg of IV Lasix along with a more aggressive bowel regimen. He was deemed stable for discharge home with a Lasix taper and continued
bowel regimen.
Home medication changes:
See below
Discharge Plan
-
Patient Disposition: Home (Routine Discharge)
Discharge Diagnosis/Procedures: CABG x4
Condition: Fair
Diet: Low Cholesterol, 2 Gram Sodium and Restrict fluids to 48 oz
Activity: No strenuous activity
Driving Restrictions: Not until seen by your Dr
Bathing Restrictions: OK to Shower
Other Services: Cardiac Rehab
Specialty Instructions: Weigh Daily- Call MD for wt gain/loss 3 lbs overnight/5 lbs in 1 week
Activity Restrictions/Additional Instructions:
ACTIVITY:
-No strenuous activity: no heavy lifting, pushing, pulling anything over 15 pounds for one month
-continue to use stairs as tolerated
DRIVING RESTRICTIONS:
-No driving for one month or until approved by your surgeon
WOUND CARE:
-Shower daily. Use soap & water.
-No lotions, creams or powders on incision area.
DIET:
-continue a low fat/low cholesterol diet.
-IF you are diabetic, continue carb controlled diet.
CARDIAC REHAB:
-Please make appointment to start in 5-6 weeks with your local hospital program. (See Cardiac Rehabilitation Discharge Booklet).
SPECIALTY INSTRUCTIONS:
-Weigh yourself daily. Call your physician for any weight gain/loss of 3 lbs overnight or 5 lbs in one week.
-REPORT any clicking noise or uneven appearance of your sternum to your surgeon immediately.
-If you smoke, you are instructed to quit. The [place] smoking hotline phone number is [phone]
Stand Alone Forms: DC Instructions- Cath/EP Lab
Referrals:
CT Transitional Care Nurse [Outside] - in one to two days
(
The Cardiothoracic Transitional Care Nurse will call you to set up a visit in 1-2 days.)
[facility] Cardiac Re[facility] [Outside] - 09/28/23 11:00 am
(Cardiac Rehab Orientation appointment is on Wednesday09/28/23 at 11AM
The Cardiac Rehab gym is located on the first floor of the [facility].)
Meka Gregorio CRNP [Specified Professional Personl] - 09/21/23 1:40 pm
Ilya Gtz DO [Family Provider] - in four to six weeks (Please make an appointment in four to six weeks. )
Andrés Milian MD [Active] - 09/14/23 2:30 pm
Additional Discharge Medication Instructions: Take your bowel regimen until you have a bowel movement post-operatively
Do not take your valsartan and coreg until directed by a healthcare professional
Do not take your oxycodone and ambien together
Prescriptions:
New
cyclobenzaprine 10 mg Tablet
5 mg PO Q8HPRN PRN (Reason: muscle spasm) Qty: 30 0RF
atorvastatin 80 mg Tablet
80 mg PO QPM Qty: 60 1RF
clopidogrel 75 mg Tablet
75 mg PO DAILY Qty: 90 3RF
amlodipine 5 mg Tablet
5 mg PO DAILY Qty: 90 3RF
pantoprazole 40 mg Tablet,Delayed Release (Dr/Ec)
40 mg PO DAILY Qty: 90 3RF
aspirin 81 mg Tablet,Chewable
81 mg PO DAILY Qty: 0 0RF
gabapentin 100 mg Capsule
100 mg PO TID Qty: 30 0RF
metoprolol succinate 25 mg Tablet Extended Release 24 Hr
25 mg PO DAILY Qty: 60 1RF
oxycodone 5 mg Tablet
2.5 mg PO Q4HPRN PRN (Reason: severe pain) Qty: 15 0RF
sennosides-docusate sodium [Stool Softener-Laxative] 8.6-50 mg Tablet
1 tab PO Q12 Qty: 60 0RF
polyethylene glycol 3350 [Miralax] 17 gram/dose powder
4 g PO DAILY Qty: 850 0RF
Rx Instructions:
take daily until you have a bowel movement
Continued
psyllium Packet
1 packet PO Q72H
acetaminophen 650 mg Tablet Extended Release
650 mg PO Q8HPRN PRN (Reason: mild pain)
turmeric 400 mg Capsule
2,000 mg PO DAILY
Nervive Nerve Health Tabs tablet
1 tab PO DAILY
Held
zolpidem 10 mg Tablet
10 mg PO HS
Hold Instructions: Resume on 08/30/23.
Discontinued
carvedilol 12.5 mg Tablet
12.5 mg PO BID
NyQuil 7.5-60-30-1,000 mg/30 mL Liquid
15 ml PO HSPRN PRN (Reason: sleep)
valsartan 320 mg Tablet
320 mg PO DAILY
Discharge Orders:
Discharge Patient (As Directed); Ordered 08/16/23
Ordered By: Carmella Collado
Care Plan Goals
Care Plan Goals:
Problem: Readiness for enhanced knowledge related to diagnosis and treatment plan
Goal: Understand your diagnosis and treatment plan needs, including medications if applicable.
Instructions: Know your diagnosis, underlying causes and treatment plan options, including medications if applicable. Consult with your health care team to learn about your diagnosis and treatment plan, including medications if applicable.
Discharge Date and Time
Print Language: CHINESE
[2023-08-16 09:53] VITALS: BP 140/78; PULSE 67; PULSE 96
--- NOTE | 2023-08-16 10:15 | PTCARENOTE ---
given dulcolax for constipation.
== END 2023-08-16 14:14 | disposition home or self-care (01) | DRG 234 ==
LOC: CVICU 13:36
PROVIDERS: Anesthesiology; Internal Medicine; Internal Medicine Cardiovascular Disease; Nurse Practitioner; Nurse Practitioner Gerontology; Physician Assistant; Physician Assistant Medical; ADMITTING PHYSICIAN Internal Medicine Cardiovascular Disease; ATTENDING PHYSICIAN Thoracic Surgery (Cardiothoracic Vascular Surgery); EMERGENCY PHYSICIAN Emergency Medicine; FAMILY PHYSICIAN Family Medicine; OTHER PHYSICIAN Internal Medicine Pulmonary Disease
PROC: 4A023N7 Measurement of Cardiac Sampling and Pressure, Left Heart, Percutaneous Approach (ICD-10-PCS; 2023-08-09)
PROC: B2111ZZ Fluoroscopy of Multiple Coronary Arteries using Low Osmolar Contrast (ICD-10-PCS; 2023-08-09)
PROC: 5A1221Z Performance of Cardiac Output, Continuous (ICD-10-PCS; 2023-08-11)
PROC: 02100ZC Bypass Coronary Artery, One Artery from Thoracic Artery, Open Approach (ICD-10-PCS; 2023-08-11)
PROC: 06BQ4ZZ Excision of Left Saphenous Vein, Percutaneous Endoscopic Approach (ICD-10-PCS; 2023-08-11)
PROC: 02100AW Bypass Coronary Artery, One Artery from Aorta with Autologous Arterial Tissue, Open Approach (ICD-10-PCS; 2023-08-11)
PROC: 05BA4ZZ Excision of Left Brachial Vein, Percutaneous Endoscopic Approach (ICD-10-PCS; 2023-08-11)
PROC: B24BZZ4 Ultrasonography of Heart with Aorta, Transesophageal (ICD-10-PCS; 2023-08-11)
PROC: 021109W Bypass Coronary Artery, Two Arteries from Aorta with Autologous Venous Tissue, Open Approach (ICD-10-PCS; 2023-08-11)
PROC: 5A09357 Assistance with Respiratory Ventilation, Less than 24 Consecutive Hours, Continuous Positive Airway Pressure (ICD-10-PCS; 2023-08-11)
DX: I21.4 Non-ST elevation (NSTEMI) myocardial infarction (principal); I47.10 Supraventricular tachycardia, unspecified; D62 Acute posthemorrhagic anemia; J98.11 Atelectasis; J90 Pleural effusion, not elsewhere classified; E87.1 Hypo-osmolality and hyponatremia; I25.110 Atherosclerotic heart disease of native coronary artery with unstable angina pectoris; I10 Essential (primary) hypertension; E78.00 Pure hypercholesterolemia, unspecified; R73.03 Prediabetes; E66.9 Obesity, unspecified; I77.810 Thoracic aortic ectasia; N40.0 Benign prostatic hyperplasia without lower urinary tract symptoms; K21.9 Gastro-esophageal reflux disease without esophagitis; G47.33 Obstructive sleep apnea (adult) (pediatric); I95.81 Postprocedural hypotension; G57.82 Other specified mononeuropathies of left lower limb; R33.8 Other retention of urine; R00.1 Bradycardia, unspecified; D69.59 Other secondary thrombocytopenia; E86.1 Hypovolemia; E87.70 Fluid overload, unspecified; Z68.39 Body mass index [BMI] 39.0-39.9, adult; Z79.899 Other long term (current) drug therapy; Z82.49 Family history of ischemic heart disease and other diseases of the circulatory system
CPT/HCPCS: 71045; 71046; 71250; 80048; 80053; 80061; 81003; 82248; 82330; 82565; 82805; 82810; 82947; 82962; 83036; 83735; 84132; 84302; 84484; 84520; 85014; 85018; 85025; 85027; 85049; 85610; 85730; 86850; 86900; 86901; 86920; 93005; 93306; 93312; 93320; 93325; 93458; 93880; 94002; 96374; 96375; 97116; 97163; 97167; 97535; 99291; C1894; P9045; Q9967

== ENCOUNTER 2023-10-22 10:28 | Outpatient (RCR) | payer OTHER, SELFPAY | END 2023-10-22 23:59 | disposition home or self-care (01) | LOC: CRHB 10:28 | PROVIDERS: ATTENDING PHYSICIAN Internal Medicine | DX: I21.4 Non-ST elevation (NSTEMI) myocardial infarction (principal); Z95.1 Presence of aortocoronary bypass graft | CPT/HCPCS: G0422; G0423 ==

== ENCOUNTER 2023-11-19 09:40 | Outpatient (RCR) | payer OTHER, SELFPAY | END 2023-11-19 23:59 | disposition home or self-care (01) | LOC: CRHB 09:40 | PROVIDERS: ATTENDING PHYSICIAN Internal Medicine | DX: I25.10 Atherosclerotic heart disease of native coronary artery without angina pectoris (principal); I25.2 Old myocardial infarction; Z95.1 Presence of aortocoronary bypass graft | CPT/HCPCS: G0422; G0423 ==

== ENCOUNTER 2023-12-22 10:34 | Outpatient (RCR) | payer OTHER, SELFPAY | END 2023-12-22 23:59 | disposition home or self-care (01) | LOC: CRHB 10:34 | PROVIDERS: ATTENDING PHYSICIAN Internal Medicine | DX: Z95.1 Presence of aortocoronary bypass graft; I21.4 Non-ST elevation (NSTEMI) myocardial infarction | CPT/HCPCS: G0422; G0423 ==

== ENCOUNTER 2023-12-29 10:24 | Outpatient (RCR) | payer OTHER, SELFPAY | END 2023-12-29 23:59 | disposition home or self-care (01) | LOC: CRHB 10:24 | PROVIDERS: ATTENDING PHYSICIAN Internal Medicine | DX: Z95.1 Presence of aortocoronary bypass graft (principal); I21.4 Non-ST elevation (NSTEMI) myocardial infarction | CPT/HCPCS: G0422; G0423 ==

== ENCOUNTER → 2024-01-14 13:53 | Outpatient (REF) | payer OTHER, SELFPAY | LOC: HWRCS 13:53 | PROVIDERS: ATTENDING PHYSICIAN Internal Medicine; FAMILY PHYSICIAN Family Medicine | DX: I25.10 Atherosclerotic heart disease of native coronary artery without angina pectoris (principal); I10 Essential (primary) hypertension; I77.810 Thoracic aortic ectasia; I21.4 Non-ST elevation (NSTEMI) myocardial infarction | CPT/HCPCS: 93306 ==

== ENCOUNTER 2024-04-14 06:02 | Emergency (ER) | payer OTHER, SELFPAY ==
[2024-04-14 06:05] VITALS: BP 158/91
--- NOTE | 2024-04-14 07:33 | ED.GENMED ---
History of Present Illness
General
Chief Complaint: Musculo-Skeletal Complaint
Source: patient
Exam Limitations: none
Time Seen by Provider: 04/14/24 06:57
Nursing documentation reviewed up to this point in time: agreed with
History of Present Illness
History of Present Illness:
68-year-old male presenting to the emergency department today with concerns of left-sided heel discomfort over the past 3 days denies any specific injuries. Seems to be worse after resting and standing up. Denies any redness or warmth denies any
systemic symptoms. Denies any preceding injury
Past History
Past History
ED Past Medical History: HTN, Hypercholesterolemia and Other (Sleep apnea uses CPAP, )
ED Past Surgical History: Orthopedic (laminectomy X 2, Carpal tunnel Bilateral, Foot surgery, Right and left rotator cuff, ) and Other (MOHs surgery right hand, Hernia repair bilateral)
Social History
Tobacco: Non-smoker
Alcohol: Occasional
Personal:
Living: with family
Family History
Family History: Early CAD and CAD
Review of Systems
Review of Systems
Allergies reviewed?: Yes
All Other Systems: ROS reviewed and negative except as documented in HPI and ROS
Phy Exam
Physical Exam
Physical Exam:
GENERAL: Alert , in no apparent distress
EYE: pupils equal and reactive
NECK: Supple, no significant adenopathy.
ENT: o/p clr, mmm.
CARDIAC: Regular rate and rhythm .
LUNGS: Clear breath sounds bilaterally, no acute respiratory distress, no wheezes/rales/rhonchi
ABDOMEN: Soft, without focal tenderness, no r/g, no cvat
NEUROLOGICAL: Alert and oriented, no focal neuro deficits
SKIN: Warm and dry, skin intact.
MUSCULOSKELETAL: No redness or warmth some mild pain when palpating the increased discomfort with flexion of the ankle. No tenderness to the Achilles Achilles seems to be intact able to move the ankle well able to move the toes normal dorsalis
pedis and posterior tibialis pulses normal cap refillHeel no edema, well perfused.
PSYCH: Normal and appropriate interaction.
Course
Orders/Labs/Results
Orders:
Orders
04/14/24 06:11
Heel, Left 2 View [CR Heel/os Calcis - Left 2 Vw*] Urgent
Comment:
Reason For Exam: non tramatic pain
Vital Signs
Initial and Last Documented VS:
Initial Vital Signs
Temp Pulse Resp BP Pulse Ox
98.0 F 83 18 158/91 98
04/14/24 06:05 04/14/24 06:05 04/14/24 06:05 04/14/24 06:05 04/14/24 06:05
Last Documented Vital Signs
Temp Pulse Resp BP Pulse Ox
98.0 F 83 18 158/91 98
04/14/24 06:05 04/14/24 06:05 04/14/24 06:05 04/14/24 06:05 04/14/24 06:05
MDM/Problems Addressed
MDM/Problems Addressed:
68-year-old male presenting to the emergency department with left-sided heel pain. Ongoing for 3 days no inciting event. No redness or warmth no systemic symptoms no evidence of infection to the area. Symptoms seem to be consistent with likely
plantar fasciitis. No evidence of neurovascular compromise to the area. Advised for conservative treatment and close follow-up with podiatry. Return precautions given.
*Critical Care Note
Total Time (30-74mins, 75-104mins- exclusive of procedures): Not Applicable
ED Attending Note
-
Portions of this chart may have been created with voice recognition software.� Occasional wrong word or��sound alike� substitutions may have occurred due to the inherent limitations of voice recognition software.
Discharge Plan
Departure
Patient Disposition: Home (Routine Discharge)
Date of Disposition: 04/14/24
Time of Disposition: 07:33
Patient with high blood pressure during this ER visit?: No
Condition: Good
Covid-19: Not Applicable
Discharge Problem:
Heel pain
Instructions: Plantar fasciitis
Prescriptions:
No Action
psyllium Packet
1 packet PO Q72H
acetaminophen 650 mg Tablet Extended Release
650 mg PO Q8HPRN PRN (Reason: mild pain)
zolpidem 10 mg Tablet
10 mg PO HS
turmeric 400 mg Capsule
2,000 mg PO DAILY
Nervive Nerve Health Tabs tablet
1 tab PO DAILY
cyclobenzaprine 10 mg Tablet
5 mg PO Q8HPRN PRN (Reason: muscle spasm) Qty: 30 0RF
atorvastatin 80 mg Tablet
80 mg PO QPM Qty: 60 1RF
clopidogrel 75 mg Tablet
75 mg PO DAILY Qty: 90 3RF
amlodipine 5 mg Tablet
5 mg PO DAILY Qty: 90 3RF
pantoprazole 40 mg Tablet,Delayed Release (Dr/Ec)
40 mg PO DAILY Qty: 90 3RF
aspirin 81 mg Tablet,Chewable
81 mg PO DAILY Qty: 0 0RF
gabapentin 100 mg Capsule
100 mg PO TID Qty: 30 0RF
metoprolol succinate 25 mg Tablet Extended Release 24 Hr
25 mg PO DAILY Qty: 60 1RF
oxycodone 5 mg Tablet
2.5 mg PO Q4HPRN PRN (Reason: severe pain) Qty: 15 0RF
sennosides-docusate sodium [Stool Softener-Laxative] 8.6-50 mg Tablet
1 tab PO Q12 Qty: 60 0RF
polyethylene glycol 3350 [Miralax] 17 gram/dose powder
4 g PO DAILY Qty: 850 0RF
Rx Instructions:
take daily until you have a bowel movement
Referrals:
Clark Martino DPM [Specified Professional Personl] - Follow up in 5-7 days
Mary Solomon DPM [Specified Professional Personl] - Follow up in 5-7 days
Ilya Gtz DO [Family Provider] -
Activity Restrictions/Additional Instructions:
You came to the emergency department today with concerns of heel discomfort. This seems to be consistent with plantar fasciitis. Please rest stretch and ice the area and follow-up closely with podiatry. Return for any worsening, new or concerning
symptoms.
Interventions
Interventions:
*Risk Screen - Suicide Last Done: 04/14/24 06:05
Discharge Date and Time
Print Language: MONEGASQUE
== END 2024-04-14 07:45 | disposition home or self-care (01) ==
LOC: EMR 06:02
PROVIDERS: EMERGENCY PHYSICIAN Emergency Medicine; FAMILY PHYSICIAN Family Medicine
DX: M79.672 Pain in left foot (principal)
CPT/HCPCS: 99283; 73650

== ENCOUNTER → 2024-05-26 14:15 | Outpatient (REF) | payer OTHER, SELFPAY | LOC: RAD 14:15 | PROVIDERS: ATTENDING PHYSICIAN Podiatrist Foot & Ankle Surgery; FAMILY PHYSICIAN Family Medicine; REFERRING PHYSICIAN Internal Medicine | DX: I73.89 Other specified peripheral vascular diseases (principal); L89.620 Pressure ulcer of left heel, unstageable | CPT/HCPCS: 93922; 93925 ==

== ENCOUNTER 2024-06-21 09:08 | Outpatient (RCR) | payer OTHER, SELFPAY | END 2024-06-21 23:59 | disposition home or self-care (01) | LOC: RPT 09:08 | PROVIDERS: ATTENDING PHYSICIAN Family Medicine | DX: R26.89 Other abnormalities of gait and mobility (principal); Z73.6 Limitation of activities due to disability; R26.2 Difficulty in walking, not elsewhere classified; M62.81 Muscle weakness (generalized); R26.81 Unsteadiness on feet; M17.0 Bilateral primary osteoarthritis of knee; G62.9 Polyneuropathy, unspecified; Z95.1 Presence of aortocoronary bypass graft | CPT/HCPCS: 97110; 97162; 97530 ==

== ENCOUNTER → 2024-06-28 11:18 | Outpatient (REF) | payer OTHER, SELFPAY | LOC: RAD 11:18 | PROVIDERS: ATTENDING PHYSICIAN Podiatrist Foot & Ankle Surgery; FAMILY PHYSICIAN Family Medicine | DX: M41.9 Scoliosis, unspecified (principal); M95.5 Acquired deformity of pelvis; M21.70 Unequal limb length (acquired), unspecified site | CPT/HCPCS: 72082 ==

== ENCOUNTER 2024-07-19 09:53 | Outpatient (RCR) | payer OTHER, SELFPAY | END 2024-07-19 23:59 | disposition home or self-care (01) | LOC: RPT 09:53 | PROVIDERS: ATTENDING PHYSICIAN Family Medicine | DX: R26.89 Other abnormalities of gait and mobility (principal); Z73.6 Limitation of activities due to disability; R26.2 Difficulty in walking, not elsewhere classified; M62.81 Muscle weakness (generalized); R26.81 Unsteadiness on feet; M17.0 Bilateral primary osteoarthritis of knee; G62.9 Polyneuropathy, unspecified; Z95.1 Presence of aortocoronary bypass graft | CPT/HCPCS: 97110; 97112 ==

== ENCOUNTER 2024-08-09 09:53 | Outpatient (RCR) | payer OTHER, SELFPAY | END 2024-08-09 23:59 | disposition home or self-care (01) | LOC: RPT 09:53 | PROVIDERS: ATTENDING PHYSICIAN Family Medicine | DX: R26.89 Other abnormalities of gait and mobility (principal); Z73.6 Limitation of activities due to disability; R26.2 Difficulty in walking, not elsewhere classified; M62.81 Muscle weakness (generalized); R26.81 Unsteadiness on feet; M17.0 Bilateral primary osteoarthritis of knee; G62.9 Polyneuropathy, unspecified; Z95.1 Presence of aortocoronary bypass graft | CPT/HCPCS: 97110; 97112 ==

== ENCOUNTER 2024-09-06 06:31 | Day surgery (SDC) | payer OTHER, SELFPAY ==
[2024-09-06 13:18] LABS: Glucose - Point of Care 85 mg/dl (70-99)
== END 2024-09-06 15:12 | disposition home or self-care (01) ==
LOC: GI 06:31
PROVIDERS: ATTENDING PHYSICIAN Internal Medicine Gastroenterology
DX: Z12.11 Encounter for screening for malignant neoplasm of colon (principal); K57.30 Diverticulosis of large intestine without perforation or abscess without bleeding; K64.8 Other hemorrhoids; Z86.0100 Personal history of colon polyps, unspecified
CPT/HCPCS: G0105; 82962

== ENCOUNTER → 2024-11-15 11:19 | Outpatient (REF) | payer OTHER, SELFPAY | LOC: HWRAD 11:19 | PROVIDERS: ATTENDING PHYSICIAN Family Medicine | DX: R22.42 Localized swelling, mass and lump, left lower limb (principal) | CPT/HCPCS: 76882 ==

== ENCOUNTER → 2024-12-01 12:17 | Outpatient (REF) | payer OTHER, SELFPAY ==
[2024-12-01 13:14] VITALS: BP 143/93; BP_SYST 65
[2024-12-01 14:15] VITALS: BP 143/70; BP_SYST 60
== END ==
LOC: RADI 12:17
PROVIDERS: ATTENDING PHYSICIAN Thoracic Surgery (Cardiothoracic Vascular Surgery); FAMILY PHYSICIAN Family Medicine
DX: L76.34 Postprocedural seroma of skin and subcutaneous tissue following other procedure (principal); Y83.8 Other surgical procedures as the cause of abnormal reaction of the patient, or of later complication, without mention of misadventure at the time of the procedure; Z95.1 Presence of aortocoronary bypass graft
CPT/HCPCS: 10030

== ENCOUNTER → 2025-01-02 10:06 | Outpatient (REF) | payer OTHER, SELFPAY | LOC: HWRCS 10:06 | PROVIDERS: ATTENDING PHYSICIAN Internal Medicine; FAMILY PHYSICIAN Family Medicine | DX: I25.10 Atherosclerotic heart disease of native coronary artery without angina pectoris (principal); I77.810 Thoracic aortic ectasia; I21.4 Non-ST elevation (NSTEMI) myocardial infarction | CPT/HCPCS: 93306 ==

== ENCOUNTER → 2025-01-22 12:46 | Outpatient (REF) | payer OTHER, SELFPAY | LOC: RAD 12:46 | PROVIDERS: ATTENDING PHYSICIAN Nurse Practitioner Adult Health | DX: R06.09 Other forms of dyspnea (principal) | CPT/HCPCS: 71046 ==